=== PATIENT | male | born 1975 | race Caucasian/White ===

== ENCOUNTER 2024-04-15 17:02 | Emergency (ER) | payer BC, SELFPAY ==
--- NOTE | ~2024-04-15 | XR_ITS ---
CHEST RADIOGRAPH CLINICAL HISTORY: cough/sob x4 days . COMPARISON: None available TECHNIQUE: Single portable view of the chest. FINDINGS The cardiomediastinal silhouette is unremarkable. The lungs are clear. Visualized osseous structures and soft tissues are unremarkable. IMPRESSION: No focal infiltrate or effusion. Reviewed, dictated and finalized at location A. O INSTRUCTOR
[2024-04-15 17:02] VITALS: O2SAT 98
[2024-04-15 17:08] VITALS: BP 147/82; PULSE 70; RESP 18; TEMP 36.6; O2SAT 98
--- NOTE | 2024-04-15 17:25 | ECG_ITS ---
Test Date: 2024-04-15 17:41:09 Measurements Intervals [place] Rate: 59 P: 0 OK: 136 QRS: 31 QRSD: 118 T: 29 QT: 412 QTc: 410 Interpretive Statements SINUS BRADYCARDIA INCOMPLETE RIGHT BUNDLE BRANCH BLOCK EARLY PRECORDIAL R/S TRANSITION MINIMAL Q WAVES- HIGH LATERAL LEADS BORDERLINE ECG No previous ECG available for comparison Electronically Signed On 04-15-2024 19:01:18 RECYCLING COLLECTIONS DRIVER by Damian Barnes D.O.
--- NOTE | 2024-04-15 17:29 | ED_ITS ---
HPI - General Adult General Chief complaint: Upper Respiratory Infection Stated complaint: sob Time Seen by Provider: 04/15/24 17:25 Source: patient Mode of arrival: ambulatory Limitations: no limitations History of Present Illness HPI narrative: 48 years old white male came to the ED by private car complaining of shortness of breath while splinting 1 week ago since that time patient feel like unable to take deep breath. He denies any chest pain., currently feeling weak, tired, muscle aches and weak, intermittent cold chills, feel need to cough, currently feeling like not able to get enough air, feeling off. The above symptoms started 1 week ago. His fiancee tested positive for COVID 1 week prior to the beginning of his symptoms. History of asthma, anxiety, Hypertension, Graves disease, patient vapes. on hydroxyzine for anxiety and panic attack patient feeling anxious about his feeling and would like to get checkup for every Related Data Home Medications Medication Instructions Recorded Confirmed Unable to Obtain Home Medications 04/15/24 04/15/24 Allergies Allergy/AdvReac Type Severity Reaction Status Date / Time doxycycline Allergy Anaphylaxis Verified 04/15/24 17:20 Penicillins Allergy Anaphylaxis Verified 04/15/24 17:20 prednisone Allergy Anaphylaxis Verified 04/15/24 17:20 Review of Systems Review of Systems: All systems reviewed & are unremarkable except as noted in HPI and below Exam Narrative: General appearance: Well-developed, well-nourished Skin: Normal color Head: Normocephalic, nontraumatic Eyes: Clear conjunctiva ENT: Oropharynx normal, ears normal, nose normal Neck: Supple, nontender Chest and respiratory: Airway patent, no respiratory distress, no accessory muscle use, no wheezing, no rhonchi Heart: Regular rate/rhythm Abdomen: Soft, nontender, no organomegaly, quiet bowel sounds Vascular: Normal peripheral pulses, normal capillary refill. 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 is normal as tested, no gross motor deficit Course Vital Signs Vital signs: Vital Signs Temperature 36.6 C 04/15/24 17:08 Pulse Rate 70 04/15/24 17:08 Respiratory Rate 18 04/15/24 17:08 Blood Pressure 147/82 H 04/15/24 17:08 Pulse Oximetry 98 04/15/24 17:08 Oxygen Delivery Room Air 04/15/24 17:08 Temperature 36.6 C 04/15/24 17:08 Pulse Rate 70 04/15/24 17:08 Respiratory Rate 18 04/15/24 17:08 Blood Pressure 147/82 H 04/15/24 17:08 Pulse Oximetry 98 04/15/24 17:08 Oxygen Delivery Room Air 04/15/24 17:08 Medical Decision Making MDM Narrative Medical decision making narrative: patient came to the ED with 1 week of feeling weak, tired, anxious, shortness of breath on exertion, coughing. Vital signs are stable Physical examination insignificant Differential diagnosis include viral infection, asthma exacerbation, pulmonary embolism, pneumonia, coronary artery disease Blood workup today includes CBC, CMP and troponin and D-dimer showed WBC of 14.4 otherwise insignificant abnormality ABG on room air showed pH of 7.46, oxygen saturation 96.9 on room air Chest x-ray showed no acute abnormalities Vital Signs Vital Signs: Vital Signs Temperature 36.6 C 04/15/24 17:08 Pulse Rate 70 04/15/24 17:08 Respiratory Rate 18 04/15/24 17:08 Blood Pressure 147/82 H 04/15/24 17:08 Pulse Oximetry 98 04/15/24 17:08 Oxygen Delivery Room Air 04/15/24 17:08 Temperature 36.6 C 04/15/24 17:08 Pulse Rate 70 04/15/24 17:08 Respiratory Rate 18 04/15/24 17:08 Blood Pressure 147/82 H 04/15/24 17:08 Pulse Oximetry 98 04/15/24 17:08 Oxygen Delivery Room Air 04/15/24 17:08 Lab Data 04/15/24 17:44 04/15/24 17:44 Labs: Lab Results 04/15/24 Range/Units 17:44 WBC 14.4 H (4.8-10.8) K/mm3 RBC 5.23 (4.70-6.10) M/mm3 Hgb 14.8 (14.0-18.0) g/dL Hct 44.6 (40.0-54.0) % MCV 85.3 (78.0-102.0) fL MCH 28.3 (27.0-31.0) pg MCHC 33.2 (32-36) g/dL RDW 13.1 (11.6-14.4) % Plt Count 202 (150-420) K/mm3 MPV 9.3 (8.7-11.0) fl Immature Gran % (Auto) 0.4 H (0.0-0.0) % Neut % (Auto) 70.2 H (50.0-70.0) % Lymph % (Auto) 18.9 (18.0-42.0) % [place] % (Auto) 6.1 (2.0-11.0) % Eos % (Auto) 3.3 (1.0-6.0) % Baso % (Auto) 1.1 H (0.0-1.0) % Lymph # (Auto) 2.72 (1.10-4.50) K/mm3 [place] # (Auto) 0.88 (0.10-0.90) K/mm3 Eos # (Auto) 0.47 (0.02-0.50) K/mm3 Baso # (Auto) 0.16 H (0.00-0.10) K/mm3 Abs Immat Gran (auto) 0.06 H (0.00-0.00) K/mm3 Absolute Neuts (auto) 10.13 H (1.70-7.20) K/mm3 Absolute Nucleated RBC 0.00 (0.00-0.00) K/mm3 Nucleated RBC % 0.0 (0-0.0) % PT 10.9 (9.50-12.1) Seconds INR 1.0 APTT 27.6 (23.9-30.70) Sec D-Dimer 0.24 (0.19-0.50) mg/L Sodium 141 (136-145) mmol/L Potassium 3.8 (3.5-5.1) mmol/L Chloride 104 (98-108) mmol/L Carbon Dioxide 28 (21-32) mmol/L Anion Gap 9 (4-12) mmol/L BUN 18 (7-18) mg/dL Creatinine 1.06 (0.70-1.30) mg/dL Estim Creat Clear Calc 108 ml/min Estimated GFR > 60 (59 - ) Glucose 88 (70-99) mg/dL Calculated Osmolality 292 (285-295) mOsm/kg Calcium 8.9 (8.5-10.1) mg/dL Total Bilirubin 0.4 (0.00-1.00) mg/dL AST < 10 L (15-37) U/L ALT 31 (16-63) U/L Alkaline Phosphatase 79 (46-116) U/L Troponin I 6.8 (0.00-60.4) ng/L NT-Pro-B Natriuret Pep 48 (0-125) pg/mL Total Protein 6.8 (6.4-8.2) g/dL Albumin 3.7 (3.4-5.0) g/dL Influenza A (RT-PCR) Negative (Negative) Influenza B (RT-PCR) Negative (Negative) RSV (RT-PCR) Negative (Negative) SARS-CoV-2 RNA (RT-PCR) Negative (Negative) ABG Data ABG results: 04/15/24 17:44 Puncture Site Right radial ABG pH 7.46 H ABG pCO2 33.0 L ABG pO2 91.8 H ABG PO2/FiO2 Ratio Not Reportable ABG HCO3 22.8 L ABG O2 Saturation 96.9 ABG O2 Content 19.8 ABG Base Excess -0.3 L A-a Gradient Not Reportable Oxyhemoglobin 96.1 O2 Delivery Device Room air O2 Liters/Min Not Reportable Imaging Data Radiologist's impression: Impressions Chest X-Ray 04/15/24 17:56 IMPRESSION: No focal infiltrate or effusion. ECG Data EKG #1: Attestation: I personally reviewed and interpreted this ECG as follows: ECG completion date: 04/15/24 ECG completion time: 18:43 Interpretation: sinus bradycardia at 59 beats per minute, right ventricular conduction delay, lateral myocardial infarction, borderline EKG Critical Care Time Critical Care Time Critical Care Time: No Discharge Plan Discharge Clinical Impression: Anxiety-like symptoms, Dyspnea Patient Disposition: Home, Self-Care Condition: Stable Instructions: Dyspnea (ED), Anxiety (ED) Additional Instructions: Return if symptoms are worsening , call your family physician for appointment, take Tylenol as as needed for aches and pain, continue home medications. Prescriptions: No Action Unable to Obtain Home Medications Follow-up/Referrals: UNKNOWN,DOCTOR [Non-Staff] -
[2024-04-15 17:45] VITALS: BP 145/80; PULSE 62; RESP 18; O2SAT 98
[2024-04-15 17:46] LABS: Base Excess ABG -0.3 mmol/L (0-2); HCO3 ABG 22.8 mmol/L (23-29); Oxygen Content ABG 19.8 %vol (16.0-22.0); Oxygen Saturation ABG 96.9 % (95-97); Oxyhemoglobin 96.1 % (94-100); PO2 ABG 91.8 mmHg (80-90); pH ABG 7.46 (7.35-7.45)
[2024-04-15 17:48] LABS: Basophils Absolute Auto 0.16 K/mm3 (0.00-0.10); Basophils Percent Auto 1.1 % (0.0-1.0); Eosinophils Absolute Auto 0.47 K/mm3 (0.02-0.50); Eosinophils Percent Auto 3.3 % (1.0-6.0); Hematocrit 44.6 % (40.0-54.0); Hemoglobin 14.8 g/dL (14.0-18.0); Immature Granulocyte Absolute 0.06 K/mm3 (0.00-0.00); Immature Granulocyte Percent A 0.4 % (0.0-0.0); Lymphocytes Absolute Auto 2.72 K/mm3 (1.10-4.50); Lymphocytes Percent Auto 18.9 % (18.0-42.0); Mean Corpuscular HGB Conc 33.2 g/dL (32-36); Mean Corpuscular Hemoglobin 28.3 pg (27.0-31.0); Mean Corpuscular Volume 85.3 fL (78.0-102.0); Mean Platelet Volume 9.3 fl (8.7-11.0); Monocytes Absolute Auto 0.88 K/mm3 (0.10-0.90); Monocytes Percent Auto 6.1 % (2.0-11.0); Neutrophils Absolute Auto 10.13 K/mm3 (1.70-7.20); Neutrophils Percent Auto 70.2 % (50.0-70.0); Platelet Count Result 202 K/mm3 (150-420); Red Blood Count 5.23 M/mm3 (4.70-6.10); Red Cell Distribution Width 13.1 % (11.6-14.4); White Blood Count 14.4 K/mm3 (4.8-10.8)
[2024-04-15 18:01] LABS: D Dimer 0.24 mg/L (0.19-0.50); Partial Thromboplastin Time 27.6 Sec (23.9-30.70); Prothrombin Time 10.9 Seconds (9.50-12.1)
[2024-04-15 18:05] LABS: Site Drawn RIGHT RADIAL
[2024-04-15 18:06] LABS: Device ROOM AIR; Modified Allen's Test Pass
[2024-04-15 18:10] LABS: Alanine Aminotransferase 31 U/L (16-63); Albumin Level 3.7 g/dL (3.4-5.0); Alkaline Phosphatase 79 U/L (46-116); Anion Gap 9 mmol/L (4-12); Aspartate Amino Transferase < 10 U/L (15-37); Bilirubin,Total 0.4 mg/dL (0.00-1.00); Blood Urea Nitrogen 18 mg/dL (7-18); Calcium 8.9 mg/dL (8.5-10.1); Carbon Dioxide 28 mmol/L (21-32); Chloride 104 mmol/L (98-108); Estimated CRCL calculation 108 ml/min; Estimated Glomerular Filt Rate > 60; Glucose 88 mg/dL (70-99); NT Pro B Type Natriuretic Pept 48 pg/mL (0-125); Osmolality Calculated 292 mOsm/kg (285-295); Potassium 3.8 mmol/L (3.5-5.1); Sodium 141 mmol/L (136-145); Total Protein 6.8 g/dL (6.4-8.2); Troponin I 6.8 ng/L (0.00-60.4)
[2024-04-15 18:25] LABS: Influenza A QL RT-PCR Negative (Negative); Influenza B QL RT-PCR Negative (Negative); RSV RNA, RT-PCR Negative (Negative); SARS-CoV-2 RNA PCR Negative (Negative)
[2024-04-15 18:30] VITALS: BP 149/86; PULSE 65; RESP 16; O2SAT 97
[2024-04-15 19:01] VITALS: BP 149/86; PULSE 65; RESP 16; TEMP 36.6; O2SAT 97
== END 2024-04-15 19:01 | disposition home or self-care (01) ==
PROVIDERS: Emergency Provider Emergency Medicine
DX: R06.00 Dyspnea, unspecified (principal); R53.1 Weakness; I10 Essential (primary) hypertension; F17.290 Nicotine dependence, other tobacco product, uncomplicated; Z20.822 Contact with and (suspected) exposure to COVID-19
CPT/HCPCS: 36415; 36600; 71045; 80053; 82805; 83880; 84484; 85018; 85025; 85380; 85610; 85730; 87637; 93005; 99284

== ENCOUNTER 2024-06-06 16:50 | Emergency (ER) | payer BC, SELFPAY ==
[2024-06-06 16:50] VITALS: BP 125/83; PULSE 81; RESP 20; TEMP 36.3; O2SAT 98
--- NOTE | 2024-06-06 16:56 | ED_ITS ---
HPI - URI/Sore Throat General Chief Complaint: Upper Respiratory Infection Stated Complaint: sinus issues Time Seen by Provider: 06/06/24 16:56 Source: patient and family Mode of arrival: ambulatory Limitations: no limitations History of Present Illness HPI Narrative: 48 years old with came to the emergency room with nasal congestion, postnasal discharge of greenish sputum, and pain at the right face started over 7 days ago. Associated with feeling dizzy when he bends forward. patient denies any fever or chills or nausea or vomiting, history of recurrent sinus infection. Patient is allergic to penicillin doxycycline and prednisone History of hypertension Related Data Allergies Allergy/AdvReac Type Severity Reaction Status Date / Time doxycycline Allergy Anaphylaxis Verified 06/06/24 17:00 Penicillins Allergy Anaphylaxis Verified 06/06/24 17:00 prednisone Allergy Anaphylaxis Verified 06/06/24 17:00 Review of Systems Review of Systems: All systems reviewed & are unremarkable except as noted in HPI and below Exam Narrative: General appearance: Well-developed, well-nourished Skin: Normal color Head: Normocephalic, nontraumatic Eyes: Clear conjunctiva ENT: Oropharynx normal, nasal congestion, moderate tenderness right maxillary sinus Neck: Supple, nontender Chest and respiratory: Airway patent, no respiratory distress, no accessory muscle use Heart: Regular rate/rhythm Neurologic: Alert and oriented ?3, 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, no gross motor deficit MDM - URI/Sore Throat MDM Narrative Medical decision making narrative: differential diagnosis includes sinusitis, viral, secondary bacterial infection Discharged on Biaxin, and Atrovent nasal spray Differential Diagnosis Differential diagnosis: Likely other ( as above) Critical Care Time Critical Care Time Critical Care Time: No Discharge Plan Discharge Clinical Impression: Sinusitis Patient Disposition: Home, Self-Care Condition: Stable Instructions: Antibiotic Form, Sinusitis (ED) Additional Instructions: Return if symptoms are worsening , call your family physician for appointment, take Tylenol as as needed for aches and pain, continue home medications. Patient Language: Nigerien Prescriptions: New clarithromycin 500 mg tablet 500 mg PO Q12H 10 Days Qty: 20 0RF ipratropium bromide 42 mcg (0.06 %) spray,non-aerosol 2 spray intranasal QID 4 Days Qty: 15 0RF Rx Instructions: administer into each nostril Follow-up/Referrals: UNKNOWN,DOCTOR [Primary Care Provider] -
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
--- OUTSIDE RECORDS SUMMARY | 2024-06-13 03:44 | XMS_ITS | Encounter Summary ---
Author Organization [facility] Address [facility]. [place], [place] [id number] [place] [address] Care Team Providers Care Hotel Reservationist Name Role Phone Desi Dang MD Primary Care Provider [phone] Reason for Referral * Imaging (Routine) - Closed Specialty Diagnoses / Procedures Referred By Contac t Referred To Contact Diagnoses Lumbar radiculopathy Procedures IR LUMBAR EPIDURAL INJECTION Wiliam Morel MD [address] [place] [address] Phone: tel: fax: [address] [address] Phone: tel: fax: Referral ID Status Reason Start Date Expiration Date Visits Re quested Visits Authorized [id number] Closed 03/21/2021 04/25/2021 1 1 Reason for Visit * Imaging (Routine) - Closed Specialty Diagnoses / Procedures Referred By Contac t Referred To Contact Diagnoses Lumbar radiculopathy Procedures IR LUMBAR EPIDURAL INJECTION Wiliam Morel MD [address] [place] [address] Phone: tel: fax: [facility] [address] [place] [address] Phone: tel: fax: Referral ID Status Reason Start Date Expiration Date Visits Re quested Visits Authorized [id number] Closed 03/21/2021 04/25/2021 1 1 Encounter Details Date Type Department Care Team (Latest Contact Info) Description 03/26/2021 11:58 AM CDT - 03/26/2021 11:59 PM CDT Hospital Encounter [facility] Interventional Radiology [address] [place] [address] Wiliam Morel MD [address] [place] [address] Discharge Disposition: Home or Self Care (Routine Discharge) Social History Tobacco Use Types Packs/Day Years Used Date Smoking Tobacco: Smoker, Current Status Unknown Smokeless Tobacco: Current Alcohol Use Standard Drinks/Week Comments Not Currently 0 (1 standard drink = 0.6 oz pur e alcohol) Sex and Gender Information Value Date Recorded Sex Assigned at Not on file 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 No / Unsure 03/26/2021 11:56 AM CDT documented as of this encounter Last Filed Vital Signs Vital Sign Reading Time Taken Comments Blood Pressure 114/88 03/26/2021 2:00 PM CDT Pulse 68 03/26/2021 2:00 PM CDT Temperature - - Respiratory Rate 16 03/26/2021 2:00 PM CDT Oxygen Saturation 99% 03/26/2021 2:00 PM CDT Inhaled Oxygen Concentration - - Weight 163.3 kg (360 lb) 03/26/2021 12:49 PM CDT Height 180.3 cm (5' 11 ) 03/26/2021 12:49 PM CDT Body Mass Index 50.21 03/26/2021 12:49 PM CDT documented in this encounter Discharge Instructions * Discharge Instructions* Luz Elena Ojeda RN - 03/26/2021 12:51 PM CDT EPIDURAL STEROID INJECTION DISCHARGE INSTRUCTIONS 1. Following injection, engage only in minimal activity for the remainder of the day. You may resume normal activities the following day. 2. Do not drive a motor vehicle or operate machinery for at least 12 hours after the procedure. 3. You may resume your normal diet. 4. There may be tenderness or pain at the site of injection which will usually resolve in 1-2 days. 5. Complications are rare, but please seek care immediately should any of the fo llow ing occur: significant headache within the first 48 hours after the procedure, continued tenderness with redness and swelling at the site of injection, alteration in sensation on your legs, such as numbness, tingling, weakness, alteration in control of your bladder and/or bowel function. Also seek care for an elevated temperature of 100.4 degrees F (38 degrees C} or greater. 6. Keep any appointments with your physician for follow care. 7. If you have any questions or concerns, please contact the terventional Radiology Department [phone],ext. [phone]. documented in this encounter Procedure Notes * Wiliam Morel MD - 03/26/2021 1:40 PM CDT [facility] PROCEDURE NOTE: PROVIDER: Wiliam Morel MD LOCATION: [facility] PROCEDURE PERFORMED: 1. Lumbar epidural steroid injection under fluoroscopic guidance PRE-PROCEDURE DIAGNOSIS: 1. M54.16 Radiculopathy, lumbar region 2. M49.06 Spinal stenosis of lumbar region POST-PROCEDURE DIAGNOSIS: Same as above. INDICATION FOR PROCEDURE: Based on the patient??s clinical history, physical exam, and all available diagnostic studies, interventional pain therapy is appropriate at this time. Patient has tried conservative therapies but moderate to severe pain and functional impairment persist. Therefore, interventional injection therapyis medically necessary for the purpose of controlling pain and improving function. The patient underwent lumbar epidural steroid injections in the past with significant improvement in pain and function. INFORMED CONSENT: The patient was greeted in the pre-procedural area and identified by name, medical record number, and date of . The indications for, risks, benefits, and alternatives to procedure were discussedin detail, and all questions were answered to the patient??s satisfaction. Informed consent was obtained, signed, witnessed, and saved in the medical record. SEDATION: None ANESTHETIC: Local POSITION: Prone PROCEDURE IN DETAIL: The patient was brought into the procedure room and positioned on the fluoroscopy table. All pressure points were checked and comfortably padded with the patient awake. A formal time-out procedure was performed by Dr. Morel per protocol; name, date of , site of procedure and procedure title were verified before beginning the procedure. The operative area was prepped and draped in the usual sterile fashion. Using fluoroscopic guidance, the L5-S1 interspace was identified. The skin and subcutaneous tissues overlying the trajectory ofneedle insertion were anesthetized with 1% lidocaine using a 25-gauge x 1-1/2 inch needle. Using a l eft paramedian approach, a 20g x 5? Touhy needle was advanced until bony contact was made with the inferior lamina. The needle was then walked into the midline toward the interlaminar space at theL5-S1 level. The epidural space was found using intermittent fluoroscopy and the loss of resistanceto saline technique. After negative aspiration, Omnipaque 300mg/ml was injected and showed spread along the epidural space without vascular uptake or intrathecal spread. After negative aspiration for blood and CSF, a 5mLsolution of 2mL 40mg/ml Depo Medrol with 3mL sterile 0.9% NaCl was injected. The needle was withdrawn. Pressure was held over the needle insertion site and hemostasis was confirmed. POST-PROCEDURE: No immediate post-procedure complications were noted. The patient was monitored for approximately 20 minutes in the post procedure recovery area and discharged home in stable hemodynamic and neurological condition. The patient was given verbal and written post-operative instructions. The patient will follow up with Dr. Morel in the Pain Management Center in approximately 2-8 weeks, or sooner if clinically indicated. In case of emergency, the patient understands that they may call with questions or seek evaluation in the Emergency Room. Fluoroscopy Time: 32 seconds Images Taken: 5 documented in this encounter Plan of Treatment Not on file documented as of this encounter Procedures Procedure Name Priority Date/Time Associated Diagnosis Comments IR LUMBAR EPIDURAL INJECTION Routine 03/26/2021 2:09 PM CDT Lumbar radiculopathy documented in this encounter Results * IR LUMBAR EPIDURAL INJECTION (03/26/2021 2:09 PM CDT) Narrative Radiology, Technologist - 03/26/2021 2:10 PM CDT This report does not contain a radiologist's interpretation. Please review associated procedure and/or operative report. Wiliam Morel MD INTERVENTIONAL RADIOLOGY F inal Result documented in this encounter Visit Diagnoses Diagnosis Lumbar radiculopathy Thoracic or lumbosacral neuritis or radiculitis, unspecified documented in this encounter Administered Medications Inactive Administered Medications - up to 3 most recent administrations Medication Order MAR Action Action Date Dose Rate Site iopamidol (ISOVUE-M 200) 41 % injection 3 mL 3 mL, Other, IMG once as needed, Contrast, 1 dose, Starting on Thu03/26/21 at 1409, Until Thu03/26/21 at 1409 Given 03/26/2021 2:09 PM CDT 3 mLs methylPREDNISolone acetate (DEPO-Medrol) injection 80 mg 80 mg, Other, Once, 1 dose, On Thu03/26/21 at 1430, Shake Well Given 03/26/2021 2:10 PM CDT 80 mg documented in this encounter Care Teams Hotel Reservationist Relationship Specialty Start Date End Date Desi Dang MD [address] [place] [address] PCP - General FAMILY PRACTICE 06/15/20 documented as of this encounter
--- OUTSIDE RECORDS SUMMARY | 2024-06-13 03:44 | XMS_ITS | Clinical Summary ---
Author Organization [facility] Address [address] [place] [address]. [place], [place] [id number] [place] [address] Care Team Providers Care Supervisor Propellant Charge Loading Name Role Phone Desi Dang MD Primary Care Provider [phone] Allergies Active Allergy Reactions Criticality Noted Date Comments Penicillins Rash Low 06/15/2020 Prednisone Diarrhea 06/15/2020 Medications No known medications Social History Tobacco Use Types Packs/Day Years Used Date Smoking Tobacco: Smoker, Current Status Unknown Smokeless Tobacco: Current Alcohol Use Standard Drinks/Week Comments Not Currently 0 (1 standard drink = 0.6 oz pur e alcohol) Sex and Gender Information Value Date Recorded Sex Assigned at Not on file 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 Gender Identity Not on file Sexual Orientation Not on file Last Filed Vital Signs Vital Sign Reading [...] Mass Index 50.21 03/26/2021 12:49 PM CDT Plan of Treatment Health Maintenance Due Date Last Done Comments Colorectal Cancer Screening Colonoscopy (10 Years) 1976 Annual Physical 12/20/1979 Pneumococcal Vaccine: Pediat rics (0 to 5 Years) and At-Risk Patients (6 to 64 Years) (1 of 2 - PCV) 1982 Hepatitis C 1994 DTaP, Tdap and Td Vaccines ( 1 - Tdap) 12/20/1995 Hepatitis B Vaccines (1 of 3 - 19+ 3-dose series) 12/20/1995 COVID-19 Vaccine (1 - 2023-2 5 season) 2024 Influenza Adult (#1) 2024 Meningococcal Vaccine Aged Out No [place] eligible based on patient's age to complete this topic RSV Immunizations Under 20 Months Aged Out No longer eligible based on patient's age to complete this topic Insurance [place] Care Teams Supervisor Propellant Charge Loading Relationship Specialty Start Date End Date Desi Dang MD [address] [place] [address] PCP - General FAMILY PRACTICE 06/15/20
--- OUTSIDE RECORDS SUMMARY | 2024-06-13 03:44 | XMS_ITS | Encounter Summary ---
Author Organization [facility] Address [facility]6 [facility]. [place], [place] [address] [place] [address] Care Team Providers Care Electrical Electronics Engineer Name Role Phone Desi Dang MD Primary Care Provider [phone] Reason for Referral * Imaging (Routine) - Closed Specialty Diagnoses / Procedures Referred By Contac t Referred To Contact Diagnoses Other specific arthropathies, not elsewhere classified, other specified site Procedures IR INJ FACET LUMB SACRAL INIT LT IR LUMBAR EPIDURAL INJECTION Wiliam Morel MD [address] [place] [address] Phone: tel: fax: [facility] [address] [place] [address] Phone: tel: fax: Referral ID Status Reason Start Date Expiration Date Visits Re quested Visits Authorized [id number] Closed 06/25/2020 12/22/2020 1 1 E WRITER Reason for Visit * Imaging (Routine) - Closed Specialty Diagnoses / Procedures Referred By Contac t Referred To Contact Diagnoses Other specific arthropathies, not elsewhere classified, other specified site Procedures IR INJ FACET LUMB SACRAL INIT LT IR LUMBAR EPIDURAL INJECTION Wiliam Morel MD [address] [place] [address] Phone: tel: fax: [facility] [address] [place] [address] Phone: tel: fax: Referral ID Status Reason Start Date Expiration Date Visits Re quested Visits Authorized [id number] Closed 06/25/2020 12/22/2020 1 1 Encounter Details Date Type Department Care Team (Latest Contact Info) Description 08/10/2020 8:32 AM MOVIE WRITER - 08/10/2020 11:59 PM MOVIE WRITER Hospital Encounter [facility] Interventional Radiology [address] [place] [address] Wiliam Morel MD [address] [place] [address] Discharge Disposition: Home or Self Care (Routine Discharge) Social History Tobacco Use Types Packs/Day Years Used Date Smoking Tobacco: Smoker, Current Status Unknown Smokeless Tobacco: Current Sex and Gender Information Value Date Recorded Sex Assigned at Not on file Legal Sex Male 10:06 PM MOVIE WRITER Gender Identity Not on file Sexual Orientation Not on file COVID-19 Exposure Response Date Recorded In the last month, have you been in contact with someone who was confirmed or suspected to have Coronavirus / COVID-19? No / Unsure 08/10/2020 8:30 AM MOVIE WRITER documented as of this encounter Last Filed Vital Signs Vital Sign Reading Time Taken Comments Blood Pressure 127/73 08/10/2020 9:57 AM MOVIE WRITER Pulse 82 08/10/2020 9:57 AM MOVIE WRITER Temperature - - Respiratory Rate 16 08/10/2020 9:57 AM MOVIE WRITER Oxygen Saturation 96% 08/10/2020 9:57 AM MOVIE WRITER Inhaled Oxygen Concentration - - Weight 158.8 kg (350 lb) 08/10/2020 9:15 AM MOVIE WRITER Height 180.3 cm (5' 11 ) 08/10/2020 9:15 AM MOVIE WRITER Body Mass Index 48.82 08/10/2020 9:15 AM MOVIE WRITER documented in this encounter Discharge Instructions * Discharge Instructions* Rosanna Sanford RN - 08/10/2020 9:22 AM MOVIE WRITER PT GIVEN VERBAL AND WRITTEN INSTRUCTIONS. PT VERBALIZED UNDERSTANDING. E WRITER documented in this encounter Procedure Notes * Wiliam Morel MD - 08/10/2020 9:50 AM CST [facility] PROCEDURE NOTE: PROVIDER: Wiliam Morel MD LOCATION: [facility] PROCEDURE PERFORMED: 1. Facet nerve blockade of the left L4, L5, S1 vertebral levels under fluoroscopic guidance #1 PRE-PROCEDURE DIAGNOSIS: 1. 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 M54.5 Low back pain POST-PROCEDURE DIAGNOSIS: Same as above. INDICATION FOR PROCEDURE: Based on the patient???s clinical history, physical exam, and all available diagnostic studies, medial branch nerve blocks are appropriate at this time. Patient has tried conservative therapies but moderate to severe pain and functional impairment persist. Therefore, interventional injection therapy is medically necessary for the purpose of controlling pain and improving function. The patient has not had diagnostic medial branch blocks in the past. INFORMED CONSENT: The patient was greeted in the pre-procedural area and identified by name, medical record number, and date of . The indications for, risks, benefits, and alternatives to procedure were discussedin detail, and all questions were answered to the patient???s satisfaction. Informed consent was obtained, signed, witnessed, [...] usual sterile fashion. Using fluoroscopic guidance, the lumbosacral spine was scanned and the C-arm was obliqued to visualize the pedicles on both sides. The skin and subcutaneous tissues overlying the trajectory of needle insertion were anesthetizedwith 1% lidocaine using a 25-gauge x 1-1/2 inch needle. A 22-gauge x 5 inch spinal needle was advanced under serial fluoroscopic guidance along the anesthetized track. The corresponding lumbar medialbranch nerves were targeted at the upper end of the pedicle at the junction of the superior articular process and transverse process at the L4 and L5 vertebral body levels on the left. The L5 dorsal ramus nerves were targeted on the left in the groove at the junction of the S1 articular process andsacral ala. The positioning of the needle was confirmed on posteroanterior and lateral views. Afternegative aspiration for blood and CSF, a small volume of Omnipaque 300mg/ml was injected and confirmed spread along the medial branch areas at the indicated level without vascular uptake. After negative aspiration, 0.5mL of 0.75% bupivacaine was injected at each level. The needle was re-styletted and removed. Pressure was held over the needle insertion site and hemostasis was confirmed. POST-PROCEDURE: No immediate post-procedure complications were noted. The patient was monitored for approximately 20 minutes in the post procedure recovery area and discharged home in stable hemodynamic and neurological condition. The patient was given verbal and written post-operative instructions. The patient will follow up with Dr. Morel for a repeat of the above lumbar MBB procedure if there is adequate pain relief from today's procedure. If there is inadequate relief from today's procedure then they will follow up with Dr. Morel in the Pain Management Center in approximately 2-8 weeks, or sooner if clinically indicated. In case of emergency, the patient understands that they may call with questions or seek evaluation in the Emergency Room. Fluoroscopy Time: 48 seconds Images Taken: 3 E WRITER documented in this encounter Plan of Treatment Not on file documented as of this encounter Procedures Procedure Name Priority Date/Time Associated Diagnosis Comments IR INJ FACET LUMB SACRAL INIT LT Routine 08/10/2020 10:20 AM MOVIE WRITER Other specific arthropathies, not elsewhere classified, other specified site documented in this encounter Results * IR INJ FACET LUMB SACRAL INIT LT (08/10/2020 10:20 AM MOVIE WRITER) Narrative Radiology, Technologist - 08/10/2020 11:35 AM MOVIE WRITER This report does not contain a radiologist's interpretation. Please review associated procedure and/or operative report. us Wiliam Morel MD INTERVENTIONAL RADIOLOGY F inal Result documented in this encounter Visit Diagnoses Diagnosis Other specific arthropathies, not elsewhere classified, other specified site documented in this encounter Administered Medications Inactive Administered Medications - up to 3 most recent administrations Medication Order MAR Action Action Date Dose Rate Site bupivacaine (PF) (DORIEAINE) 0.75 % injection 5 mL 5 mL, Other, Once, 1 dose, On Thu08/10/20 at 1200 Given 08/10/2020 10:20 AM MOVIE WRITER 5 mLs iopamidol (ISOVUE-M 200) 41 % injection 8 mL 8 mL, Other, IMG once as needed, Contrast, 1 dose, Starting on Thu08/10/20 at 1133, Until Thu08/10/20 at 1020 Given 08/10/2020 10:20 AM MOVIE WRITER 8 mLs lidocaine (XYLOCAINE) 1 % injection SOLN 3 mL 3 mL, Intradermal, Once, 1 dose, On Thu08/10/20 at 1200 Given 08/10/2020 10:20 AM MOVIE WRITER 3 mLs Back documented in this encounter Care Teams Electrical Electronics Engineer Relationship Specialty Start Date End Date Desi Dang MD [address] [place] [address] PCP - General FAMILY PRACTICE 06/15/20 documented as of this encounter
--- OUTSIDE RECORDS SUMMARY | 2024-06-13 03:44 | XMS_ITS | Encounter Summary ---
Author Organization [facility] Address [facility], [facility]6 [facility] [place] [address] [place] [address] Care Team Providers Care Fruit Farmer Name Role Phone Desi Dang MD Primary Care Provider [phone] Reason for Visit * Imaging (Routine) - Closed Specialty Diagnoses / Procedures Referred By Kristyn vieira Referred To Contact Diagnoses Sacroiliitis, not elsewhere classified (CMS/HCC) Procedures IR INJ ANES/STER SI JOINT W GD LT IR INJ SI JOINT BURSA LT IR LUMBAR EPIDURAL INJECTION Wiliam Morel MD [address] [place] [address] Phone: tel: fax: [facility] [address] [place] [address] Phone: tel: fax: Referral ID Status Reason Start Date Expiration Date Visits Re quested Visits Authorized [id number] Closed 05/16/2020 11/12/2020 1 1 Encounter Details Date Type Department Care Team (Latest Contact Info) Description 06/15/2020 7:46 AM MANAGER MEMBERSHIP - 06/15/2020 11:59 PM [facility] Hospital Encounter [facility] Interventional Radiology [address] [place] [address] Wiliam Morel MD [address] [place] [address] Discharge Disposition: Home or Self Care (Routine Discharge) Social History Tobacco Use Types Packs/Day Years Used Date Smoking Tobacco: Smoker, Current Status Unknown Smokeless Tobacco: Current Sex and Gender Information Value Date Recorded Sex Assigned at Not on file Legal Sex Male 10:06 PM MANAGER MEMBERSHIP Gender Identity Not on file Sexual Orientation Not on file COVID-19 Exposure Response Date Recorded In the last month, have you been in contact with someone who was confirmed or suspected to have Coronavirus / COVID-19? No / Unsure 06/15/2020 7:45 AM MANAGER MEMBERSHIP documented as of this encounter Last Filed Vital Signs Vital Sign Reading Time Taken Comments Blood Pressure 113/63 06/15/2020 8:38 AM MANAGER MEMBERSHIP Pulse 70 06/15/2020 8:38 AM MANAGER MEMBERSHIP Temperature - - Respiratory Rate 18 06/15/2020 8:38 AM MANAGER MEMBERSHIP Oxygen Saturation 96% 06/15/2020 8:38 AM MANAGER MEMBERSHIP Inhaled Oxygen Concentration - - Weight 158.8 kg (350 lb) 06/15/2020 7:58 AM MANAGER MEMBERSHIP Height 180.3 cm (5' 11 ) 06/15/2020 7:58 AM MANAGER MEMBERSHIP Body Mass Index 48.82 06/15/2020 7:58 AM MANAGER MEMBERSHIP documented in this encounter Discharge Instructions * Discharge Instructions* Rosanna Sanford RN - 06/15/2020 8:04 AM MANAGER MEMBERSHIP Pt given verbal and written instructions. Pt verbalized understanding. GER MEMBERSHIP documented in this encounter Procedure Notes * Wiliam Morel MD - 06/15/2020 8:40 AM CST PA[facility] MANA[facility]EMENT [facility] PROCEDURE NOTE: PROVIDER: Wiliam Morel MD LOCATION: [facility] PROCEDURE PERFORMED: 1. Left sacroiliac joint block under fluoroscopic guidance PRE-PROCEDURE DIAGNOSIS: 1. M46.1 Sacroilitis, not elsewhere classified 2. M54.5 Low back pain POST-PROCEDURE DIAGNOSIS: Same as above. INDICATION FOR PROCEDURE: Based on the patient??s clinical history, physical exam, and all available diagnostic studies, interventional pain management therapy is appropriate at this time. Patient has tried conservative therapies but moderate to severe pain persists. Therefore, interventional injection therapy is medically necessary for the purpose of controlling pain and improving function. The patient has not had diagnostic sacroiliac joint blocks in the past. INFORMED CONSENT: The [...] the lumbosacral spine was scanned and the left sacroiliac joint was visualized with contralateral oblique tilt. The skin and subcutaneous tissues overlying the trajectory of needle insertion were anesthetized with 1% lidocaine using a 25-gauge x 1-1/2 inch needle. A 22-gauge x 5 inch spinal needlewas advanced under serial fluoroscopic guidance, targeting the inferior third of the joint, until it engaged the target. After negative aspiration, a small volume of Omnipaque 300mg/ml was injected and confirmed spread along the sacroiliac joint area. Lateral imaging was obtained to ensure appropriate depth. After negative aspiration, 2mL of a treatment solution containing 1mL of 40 mg/mL methylprednisolone and 1mL of 0.9% normal saline was injected. The needle was re-styletted and removed. Pressure [...] evaluation in the Emergency Room. Fluoroscopy Time: 24 seconds Images Taken: 3 GER MEMBERSHIP GER MEMBERSHIP documented in this encounter Plan of Treatment Not on file documented as of this encounter Procedures Procedure Name Priority Date/Time Associated Diagnosis Comments IR INJ ANES/STER SI JOINT W GD LT Routine 06/15/2020 8:34 AM MANAGER MEMBERSHIP Sacroiliitis, not elsewhere classified documented in this encounter Results * IR INJ ANES/STER SI JOINT W GD LT (06/15/2020 8:34 AM MANAGER MEMBERSHIP) Anatomical Region Laterality Modality NA Interventional R adiology, Interventional Radiology Narrative 06/15/2020 8:38 AM MANAGER MEMBERSHIP This report does not contain a radiologist's interpretation. Please review associated procedure and/or operative report. us Wiliam Morel MD INTERVENTIONAL RADIOLOGY E dited Result - Final documented in this encounter Visit Diagnoses Diagnosis Sacroiliitis, not elsewhere classified (CMS/HCC) Sacroiliitis, not elsewhere classified documented in this encounter Administered Medications Inactive Administered Medications - up to 3 most recent administrations Medication Order MAR Action Action Date Dose Rate Site iopamidol (ISOVUE-M 200) 41 % injection 2 mL 2 mL, Other, IMG once as needed, Contrast, 1 dose, Starting on Thu06/15/20 at 0835, Until Thu06/15/20 at 0835 Given 06/15/2020 8:35 AM MANAGER MEMBERSHIP 2 mLs methylPREDNISolone acetate (DEPO-Medrol) injection 40 mg 40 mg, Other, Once, 1 dose, On Thu06/15/20 at 0900, Shake Well Given 06/15/2020 8:35 AM MANAGER MEMBERSHIP 40 mg documented in this encounter Care Teams Fruit Farmer Relationship Specialty Start Date End Date Desi Dang MD [address] [place] [address] PCP - General FAMILY PRACTICE 06/15/20 documented as of this encounter
--- OUTSIDE RECORDS SUMMARY | 2024-06-13 03:44 | XMS_ITS | Encounter Summary ---
Author Organization [facility] Address [facility] [place] [address] [place] [address] Care Team Providers Care Licensed Club Manager Name Role Phone Unavailable Primary Care Provider Unavailabl e Encounter Details Date Type Department Care Team (Late st Contact Info) Description 03/06/2007 Emergency [facility] Emergency [address] [place] [address] Myron Leon MD [address] [place], [place] [address] Social History Tobacco Use Types Packs/Day Years Used Date Smoking Tobacco: Never Assessed Sex and Gender Information Value Date Recorded Sex Assigned at Not on file Legal Sex Male 10:06 PM MACHINERY ENGINEER Gender Identity Not on file Sexual Orientation Not on file documented as of this encounter Plan of Treatment Not on file documented as of this encounter Visit Diagnoses Not on filedocumented in this encounter
--- OUTSIDE RECORDS SUMMARY | 2024-06-13 03:44 | XMS_ITS | Encounter Summary ---
Author Organization [facility] Address [facility]6 [facility] [place] [address] [place] [address] Care Team Providers Care Cigarette Tipper Name Role Phone Unavailable Primary Care Provider Unavailabl e Encounter Details Date Type Department Care Team (Late st Contact Info) Description 10/16/2012 Abstract [facility] Medical Group Priority Care - SToi Lam [address] [place] [address] Lupe Gill MD [facility] [place] [address] Social History Tobacco Use Types Packs/Day Years Used Date Smoking Tobacco: Never Assessed Sex and Gender Information Value Date Recorded Sex Assigned at Not on file Legal Sex Male 10:06 PM CALL CENTER OPERATIONS MANAGER Gender Identity Not on file Sexual Orientation Not on file documented as of this encounter Last Filed Vital Signs Vital Sign Reading Time Taken Comments Blood Pressure 126/78 10/16/2012 9:36 AM CDT Pulse 60 10/16/2012 9:36 AM CDT Temperature - - Respiratory Rate - - Oxygen Saturation - - Inhaled Oxygen Concentration - - Weight 114.3 kg (252 lb) 10/16/2012 9:36 AM CDT Height 180.3 cm (5' 11 ) 10/16/2012 9:36 AM CDT Body Mass Index 35.15 10/16/2012 9:36 AM CDT documented in this encounter Progress Notes * Lupe Vivas MD - 10/16/2012 9:30 AM CDT Chief Complaint 1. Cold Symptoms Chief Complaint Free Text: Pt states he was at work yesterday and started feeling weird . States he was cold and clammy, week, spacie and had some difficulty breathing. Reason For Visit Acute Visit History of Present Illness HPI Free Text: doing better today than yesterday. pt not sure how much is thyroid. He wants to rule out cardiac cause. Denies chest pain. some numbness and tingling 4th and 5th fingers on left hand Cold Symptoms: Associated symptoms include post nasal drainage, sore throat, dry cough, shortness of breath and chills. Active Problems 1. Hyperthyroidism 242.90 Social History ?? Current Smoker 305.1 Current Meds 1. Methimazole 5 MG Oral Tablet; TAKE 15 MG Daily; Therapy: (Recorded:16Oct2012) to Recorded; For: Hyperthyroidism (242.90); Dispense: 0 Days ; #: Sufficient Tablet; Refill: 0; Record; Last Updated By: Jeri Zhou 2. Propranolol HCl 10 MG Oral Tablet; Therapy: (Recorded:16Oct2012) to Recorded; Dispense: 0 Days ; #: Sufficient TABS; Refill: 0; Record; Last Updated By: Jeri Zhou Allergies 1. Penicillins Vitals Vital Signs [Data Includes: Current Encounter] 16Oct2012 09:36AM Temperature 99 F, Oral Heart Rate 60, L Radial Pulse Quality Regular, L Radial Respiration 16 Respiration Quality Normal Systolic 126, LUE, Sitting Diastolic 78, LUE, Sitting O2 Saturation 98, RA BMI Calculated 35.28 BSA Calculated 2.32 Height 5 ft 11 in Weight 252 lb Physical Exam Constitutional: no acute distress, well appearing and well nourished. Eyes: PERRL. ENT: translucent with normal light reflex and canals patent without erythema and normal oropharynx without erythema, edema, exudate, or lesions. Pulmonary: no increased work of breathing or signs of respiratory distress and clear to auscultation. Cardiovascular: normal rate and rhythm, normal S1 and S2, without murmurs. Psychiatric: oriented to person, place, and time. Musculoskeletal/Neurological: Musculoskeletal: gait and station normal, normal range of motion and normal strength/tone. Assessment 1. Hyperthyroidism 242.90 2. Hypertension 401.9 3. Upper Respiratory Infection 465.9 Plan likely early viral syndrome that may be affecting his thyroid function, but no tachycardia or increased BP. Keep appt with endocrine in 2 days. ibuprofen prn and gargle with warm salt water prn ; push fluids Signatures Electronically signed by : Lupe Vivas M.D.; Oct 16 2012 11:36AM (Author) CENTER OPERATIONS MANAGER documented in this encounter Plan of Treatment Not on file documented as of this encounter Visit Diagnoses Not on filedocumented in this encounter
--- OUTSIDE RECORDS SUMMARY | 2024-06-13 03:44 | XMS_ITS | Encounter Summary ---
Author Organization [facility] Address [facility]6 [facility]. [place], [place] [address] [place] [address] Care Team Providers Care Bullard Operator Name Role Phone Desi Dang MD Primary Care Provider [phone] Encounter Details Date Type Department Care Team (Latest Contact Info) Description 08/10/2020 Travel Social History Tobacco Use Types Packs/Day Years Used Date Smoking Tobacco: Smoker, Current Status Unknown Smokeless Tobacco: Current Sex and Gender Information Value Date Recorded Sex Assigned at Not on file Legal Sex Male 10:06 PM OSTEOPATHIC RESIDENT Gender Identity Not on file Sexual Orientation Not on file COVID-19 Exposure Response Date Recorded In the last month, have you been in contact with someone who was confirmed or suspected to have Coronavirus / COVID-19? No / Unsure 08/10/2020 8:30 AM OSTEOPATHIC RESIDENT documented as of this encounter Plan of Treatment Not on file documented as of this encounter Visit Diagnoses Not on filedocumented in this encounter Care Teams Bullard Operator Relationship Specialty Start Date End Date Desi Dang MD [address] [place] [address] PCP - General FAMILY PRACTICE 06/15/20 documented as of this encounter
--- OUTSIDE RECORDS SUMMARY | 2024-06-13 03:44 | XMS_ITS | Encounter Summary ---
Author Organization [facility] Address [address] [place] [address]. [place], [place] [address] [place] [address] Care Team Providers Care Boiler Welder Name Role Phone Desi Dang MD Primary Care Provider [phone] Encounter Details Date Type Department Care Team (Latest Contact Info) Description 03/26/2021 Travel Social History Tobacco Use Types Packs/Day Years Used Date Smoking Tobacco: Smoker, Current Status Unknown Smokeless Tobacco: Current Alcohol Use Standard Drinks/Week Comments Not Currently 0 (1 standard drink = 0.6 oz pur e alcohol) Sex and Gender Information Value Date Recorded Sex Assigned at Not on file Legal Sex Male 10:06 PM 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 No / Unsure 03/26/2021 11:56 AM CDT documented as of this encounter Plan of Treatment Not on file documented as of this encounter Visit Diagnoses Not on filedocumented in this encounter Care Teams Boiler Welder Relationship Specialty Start Date End Date Desi Dang MD [address] [place] [address] PCP - General FAMILY PRACTICE 06/15/20 documented as of this encounter
--- OUTSIDE RECORDS SUMMARY | 2024-06-13 03:44 | XMS_ITS | Encounter Summary ---
Author Organization [facility] Address [facility]6 [facility]. [place], [place] [address] [place] [address] Care Team Providers Care General Utility Maintenance Repairer Name Role Phone Desi Dang MD Primary Care Provider [phone] Encounter Details Date Type Department Care Team (Latest Contact Info) Description 06/15/2020 Travel Social History Tobacco Use Types Packs/Day Years Used Date Smoking Tobacco: Smoker, Current Status Unknown Smokeless Tobacco: Current Sex and Gender Information Value Date Recorded Sex Assigned at Not on file Legal Sex Male 10:06 PM EVP BUSINESS DEVELOPMENT Gender Identity Not on file Sexual Orientation Not on file COVID-19 Exposure Response Date Recorded In the last month, have you been in contact with someone who was confirmed or suspected to have Coronavirus / COVID-19? No / Unsure 06/15/2020 7:45 AM EVP BUSINESS DEVELOPMENT documented as of this encounter Plan of Treatment Not on file documented as of this encounter Visit Diagnoses Not on filedocumented in this encounter Care Teams General Utility Maintenance Repairer Relationship Specialty Start Date End Date Desi Dang MD [address] [place] [address] PCP - General FAMILY PRACTICE 06/15/20 documented as of this encounter
--- OUTSIDE RECORDS SUMMARY | 2024-06-13 03:45 | XMS_ITS | Data Portability ---
Author Organization [facility], [address] Neurology (NM) Address [address] 4th [place] [address] Care Team Providers Care Mobile Equipment Servicer Name Role Phone VIGNESH SCHULER Primary Care Provider Assessment Encounter Date Assessment Date Assessment LastModified by Organization Details LastModified Time 03/24/2024 03/24/2024 1. Health maintenance: Discussed chronic disease management in detail, medication compliance, healthy diet/staying active, and advised follow-up in 1 year, sooner if needed. 2. Seasonal allergic rhinitis: We will start the patient on some Singulair 10 mg at bedtime. He will continue Zyrtec oral daily. He is to follow up in the office as needed and verbalized understanding. 3. Impacted cerumen, right ear: Obtained informed consent. We did flush out that right ear and able to visualize TM and it appears normal. The patient tolerated the procedure well with no complaints. 4. Hypertension: Blood pressure is stable today in office. The patient remains on losartan 100 mg oral daily. No medication changes at this time. Recommend continue to monitor blood pressure at home or various offices and stores. Request that they report changes in numbers or problems with medication. Discussed continued lifestyle modifications for weight and blood pressure. 5. Obstructive sleep apnea syndrome: The patient wears CPAP nightly. No acute complaints. Not currently following any specialists. 6. History of Graves? disease: The patient recently had thyroid labs done back in the spring that were stable. Not currently following anybody in Endocrinology. Defers getting any labs at this time. He will plan to get bloodwork done when he establishes with a new primary care in [place]. 7. Asthma: The patient has no acute asthma complaints today, just some increased allergy complaints. I am starting him on some Singulair. He is also on the Symbicort and albuterol inhaler as needed. He is to follow up in the office if he has any acute issues and verbalized understanding. 8. Anxiety: The patient has no acute complaints of anxiety. He is not currently on any medication for this. He is to follow up in the office as needed and verbalized understanding. 9. Erectile dysfunction: The patient is being treated with sildenafil for erectile dysfunction and tolerating this well. No acute complaints. We will refill medication as indicated. The patient is to follow up in office if he has any acute issues and verbalized understanding. I personally spent a total of 30 minutes on the patient on this date of service including both bece-hr-ppui and pvg-teft-rr-face time excluding any separately reportable services. lag [email or web address] Not available 03/24/2024 16:16:34 Plan of Treatment Reminders Order Date Submit Date Provider Last Modified By Organization Details Last Modified Time Details Appointments None recorded. Lab None recorded. Referral None recorded. Procedures None recorded. Surgeries None recorded. Imaging None recorded. Medication Orders sildenafil 50 mg tablet 2023 [facility] [address] [place], [address], 15:40:42 Symbicort 160 mcg-4.5 mcg/actuati on HFA aerosol inhaler 2023 [facility] [address] [place], [address], 4 15:40:42 albuterol sulfate HFA 90 mcg/actuati on aerosol inhaler 2023 [facility] [address] [place], [address], 15:40:43 losartan 100 mg tablet 2023 [facility] [address] [place], [address], 15:40:41 montelukast 10 mg tablet 2023 024 [facility], [address], [place], [address], 15:37:19 Patient TargetsNo targets recorded. Patient Instructions Encounter Date Encounter Id Patient Instructions Last Modified By Organization Details Last Modified Time 01/06/2024 [id number] I discussed with the patient that this looks like a simple superficial laceration of the scalp. He was treated with Dermabond. The wound was cleansed within 20 minutes of the injury. I do not feel antibiotics are necessary today. He should watch for signs of infection if he develops any he should return for reevaluation. He is up-to-date on his tetanus immunization. He is negative for any significant head injury. If he does develop problems with headache, lightheadedness, dizziness he should return for reevaluation. [email or web address] Not available 01/06/2024 12:25:12 Reason for Referral None Reported. Problems Name Problem SNOMED Code Status Onset Date Resolution Date Notes Provider Name and Address Organization Details Recorded Time Benign essential hypertensio n 2673660 Active 2023 Dior Yordy [facility] 4 15:33:34 Anxiety 13066348 Active 2023 Nathalie Sun [facility] 4 11:33:35 Asthma 936432009 Active 2023 Nathalie Sun [facility] 4 11:33:49 Graves' disease 074444104 Active 2023 Nathaliesacha Sun [facility] 4 11:34:10 Obstructive sleep apnea syndrome 90310240 Active 2023 Nathaliesacha Sun [facility] 4 11:34:31 Impacted cerumen in right ear 2016799497841 103 Active 2023 Terri Lynn, EXECUTIVE MANAGER, WOOD MODEL MAKER [address] [place] [address], [phone] , [facility] 4 15:32:55 Seasonal allergic rhinitis 936599108 Active 2023 Terri Lynn APRN, WOOD [employer]DEL MAKER [address] [place] [address], [phone], [facility] 4 15:34:46 Erectile dysfunction 942494147 Active 2023 Terri Lynn APRN, [employer] [address] [place] [address], [phone], [facility] 4 15:39:13 Chronic obstructive pulmonary disease 49378927 Active 2023 Bree Hernandez [facility] 4 23:36:24 Problem Notes None recorded. Procedures Surgical History Date Name Laterality Status Provider Name and Address Organization Details Recorded Time 4 Wound Care UC completed JODEE ZHANG APRN-WOOD MODEL MAKER [address] [place] [address], [phone], [facility] 01/06/2024 12:23:50 Removal of tonsils completed Not Available Health Note 03/17/2024 15:23:38 Imaging Results None recorded. Procedure Notes None recorded. Medical Equipment None Reported. Allergies Allergen ID Allergen Name Allergen Category Reaction Reaction Severity Criticality Documentation Date Start Date Code Code System Note Provider Name and Address Organization Details Recorded Time [id number] [id number] d6566 prednison e medicatio n dizziness Not available Not available 07/01/20232018 8640 RxNorm React ion: Dizzi ness; Comme nt: Annot ation s: NAT MATUTE, LEO SULTANA 2018 8:28A M Also cause d light heade dness ; ; Not Available Not Available Not Available [id number] 35c0f Medicinal product containin g penicilli n and acting as antibacte rial agent (product) medicatio n rash Not available Not available 06/29/20232007 97922 05 SNOMED React ion: Rash; Not Available Not Available Not Available [id number] b50 doxycycli ne Not available other Not available Not available 06/29/20232018 3640 RxNorm React ion: Unkno wn to Patie nt; Not Available Not Available Not Available Medications Name Sig Start Date Stop Date Status Note LastModified by Organization Details LastModified Time sildenafil 50 mg tablet TAKE 1 TABLET BY MOUTH ONCE DAILY ONE HOUR BEFORE NEEDED 2023 active Not Available Not Available Not Avai lable montelukast 10 mg tablet Take 1 tablet every day by oral route as directed for 90 days. 2023 active Not Available Not Available Not Avai lable albuterol sulfate HFA 90 mcg/actuati on aerosol inhaler Inhale 2 puffs every 4 hours by inhalatio n route as needed for 30 days. 2023 active Not Available Not Available Not Avai lable losartan 100 mg tablet Take 1 tablet every day by oral route. 2023 active Not Available Not Available Not Avai lable Symbicort 160 mcg-4.5 mcg/actuati on HFA aerosol inhaler Inhale 2 puffs twice a day by inhalatio n route as directed for 30 days. 2023 active Not Available Not Available Not Avai lable losartan potassium (bulk) 03/24 completed Not Available Not Available Not Available Vitals Date Recorded Body height Body mass index (BMI) Body weight Body temperature Heart rate Respiratory rate Oxygen saturation Oxygen saturation in Arterial blood by Pulse oximetry Systolic blood pressure Diastolic blood pressure Provider Name and Address Organization Details Last Updated DateTime 4 180.34 cm 42.8 kg/m2 619243. 86 g 97.7 [degF] 70 /min 18 /min 97 % 97 % 132 mm[Hg] 82 mm[Hg] Princess España [facility] 4 12:03:15 Date Recorded Body height Body mass index (BMI) Body weight Heart rate Oxygen saturation Oxygen saturation in Arterial blood by Pulse oximetry Systolic blood pressure Diastolic blood pressure Provider Name and Address Organization Details Last Updated DateTime 4 180.34 cm 42.3 kg/m2 664142. 49 g 82 /min 99 % 99 % 122 mm[Hg] 64 mm[Hg] Dior Scales [facility] 14:48:32 Social History Question Answer Notes LastModified by Organizat ion Details LastModified Time Tobacco Smoking Status Current Some Day Smoker Not Available Health Note 03/17/2024 15:23:38 Do You Have An Advance Directive? No [email or web address] Information not available 03/17/2024 What Is Your Level Of Alcohol Consumption? None [email or web address] Information not available 03/17/2024 What Is Your Level Of Caffeine Consumption? Occasional [email or web address] Information not available 03/17/2024 Are You Currently Employed? 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 3-4 Times Per Week [email or web address] Information not available 03/17/2024 E-cigarettes Or Vaporization Device? Uses Nicotine Containing Device [email or web address] Information not available 03/17/2024 How Many Packs Per Day (PPD)? 1/4 Pack Per Day [email or web address] Information not available 03/17/2024 How Long Have You Smoked? 5 [email or web address] Information not available 03/17/2024 What Was The Date Of Your Most Recent Tobacco Screening? 03/24/2024 [email or web address] Information not available 03/17/2024 What Is Your Relationship Status? Single [email or web address] Information not available 03/17/2024 Do You Use Any Illicit Or Recreational Drugs? No [email or web address] Information not available 03/17/2024 Sex: Unknown Functional Status Question Answer Note LastModified by Organization D etails LastModified Time What is your exercise level? Moderate [email or web address] Information not available 03/17/2024 Mental Status None recorded. Family History Relationship Description Onset Age of this Age Resolved Age Notes LastModified by Organization Details LastModified Time Mother Family history of malignant neoplasm [email or web address] Not available 2023 15:23:37 Father Diabetes mellitus [email or web address] Not available 2023 15:23:37 Father Heart disease [email or web address] Not available 2023 15:23:37 Father Hypertensive disorder [email or web address] Not available 2023 15:23:37 Unspecified Relation Disorder of thyroid gland [email or web address] Not available 2023 15:23:37 Medical History Condition Response Attention-deficit Hyperactivity Disorder N High Blood Pressure Y Thyroid Problems Y COPD N Depression N Anemia N Diabetes N Anxiety Disorder Y Bleeding Disorder N Arthritis N Hyperlipidemia N Cancer N Stroke N Asthma Y Seizures N Heart Disease N Fibromyalgia N Osteoporosis N Kidney Disease N Past Encounters Encounter ID Performer Location Encounter Start Date Encounter Closed Date Diagnosis/Indication Diagnosis SNOMED-CT Code Diagnosis ICD10 Code Diagnosis Note [id number] JODEE ZHANG APRN-WOOD MODEL MAKER [facility]) [address] [place] [address] 01/06/2024 11:49:43 01/06/2024 12:26:32 Simple laceration of scalp 462090135 S01.01XA [id number] Terri Lynn APRN, [facility] [address] [place] [address] 03/24/2024 14:32:19 03/24/2024 15:39:11 Anxiety 32625829 F41.9 Asthma 075871656 J45.90 9 Obstructiv e sleep apnea syndrome 15104905 G47.33 Benign ess ential hypertension 6888585 I10 History of Graves' disease 5755223266 53798 Z86.39 Impacted c erumen in right ear 1345741931 145567 H61.21 History an d physical examination, annual for health maintenance 03364230 Z00.00 Seasonal a llergic rhinitis 455569774 J30.2 Erectile dysfunction 860 034555 N52.9 Chronic ob structive pulmonary disease 38163784 J44.9 Health Concerns Section Related Observation LastModified by Organization Detai ls LastModified Time None Recorded Concern Status LastModified by Organization Details LastModified Time None Recorded Advance Directives Directive N: Payers Encounter Date Sequence Insurance Name Policy Number Policy Marie Covered Member ID Marie Member ID Guarantor Name 01/06/2024 1 [place] [id number] Hamlet H Jossue [id number] Hamlet H Jossue 03/24/2024 1 [place] [id number] Hamlet H Jossue [id number] Hamlet H Jossue Notes Date Note Type Note Provider Name and Address Organization Details Recorded Time 01/06/2024 text/html Hamlet is a 48 year old male who presents for an injury to the scalp that occurred about 20 minutes before arrival. 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 As he stood up he hit his head on the underside of the vehicle and cut the left parietal scalp. He came here immediately for evaluation. He is up-to-date on his tetanus, his last Tdap was 12/01/2020. He denies any lightheadedness or dizziness. No neck pain. His past medical history significant for allergies, asthma, hypertension. Social history: Smoker. JODEE ZHANG, CANDIDO-WOOD MODEL MAKER [address] [place] [address], [phone], [facility] 01/06/2024 12:25:16 03/24/2024 text/html Hamlet Marcum is a 48-year-old male patient who presents to the office today for a medication check. They have been feeling well and healthy overall. PAST MEDICAL HISTORY:Includes anxiety, asthma, history of Graves? disease, obstructive sleep apnea, hypertension. MEDICATIONS:They report compliance with medications. HOSPITALIZATIONS:Denie s any recent hospitalizations. SOCIAL HISTORY:The patient is a current every-day smoker. He vapes using a nicotine-containing device. Denies any illicit drug use. Occasionally drinks caffeine. Denies any alcohol use. They are here today for a checkup. He complains of some allergy-related symptoms but otherwise has no acute complaints. He is getting ready to move to [place] with his fianc? ? ?e and is soon to be in September. He plans to establish care down there but needed to have a checkup before then. He has no other acute complaints. HEALTH MAINTENANCE:Colonoscop y: He has not yet had a colonoscopy. He has no family history of colon cancer. He does plan on getting colon screening done, but wants to wait until he is established with his fiancee? s insurance once they are and is with his new primary care in [place].Vaccines: He has updated Tdap on 12/01/2020, but defers any other vaccines.lag Hamlet Marcumis a 48 year oldmalepresenting for care. Terri Lynn, CANDIDO, WOOD MODEL MAKER [address] [place] [address], [phone], [place] [facility] 03/26/2024 17:20:48
--- OUTSIDE RECORDS SUMMARY | 2024-06-13 03:45 | XMS_ITS | Continuity of Care Document ---
Author Organization [facility] Address [address] [place] [address] Care Team Providers Care Nurse Healthcare Manager Name Role Phone VIGNESH SCHULER Primary Care [...] establishes with a new primary care in [place]. 7. Asthma: The patient has no acute [...] on this date of service including both yyaa-oi-blxq and jqx-wggx-qp-face time excluding any separately reportable services. lag [email or web address] Not available 03/24/2024 16:16:34 Plan of Treatment Reminders Order Date Submit Date Provider Last Modified By Organization Details Last Modified Time Details Appointments None recorded. Lab None recorded. Referral None recorded. Procedures None recorded. Surgeries None recorded. Imaging None recorded. Medication Orders sildenafil 50 mg tablet 2023 [facility] [address] [place], [address], 15:40:42 Symbicort 160 mcg-4.5 mcg/actuati on HFA aerosol inhaler 2023 [facility] [address] [place], [address], 15:40:42 albuterol sulfate HFA 90 mcg/actuati on aerosol inhaler 2023 [facility] [address] [place], [address], 15:40:43 losartan 100 mg tablet 2023 [facility] [address] [place], [address], 10/24/202 4 15:40:41 montelukast 10 mg tablet 2023 024 [facility], [address] [place], [address], 15:37:19 Patient TargetsNo targets recorded. Patient InstructionsNo instructions recorded. Reason for Referral None Reported. Problems Name Problem SNOMED Code Status Onset Date Resolution Date Notes Provider Name and Address Organization Details Recorded Time Benign essential hypertensio n 8718382 Active 2023 Dior Scales [facility] 4 15:33:34 Anxiety 05511318 Active 2023 Nathalie Sun [facility] 4 11:33:35 Asthma 626201161 Active 2023 Nathaliesacha Sun [facility] 4 11:33:49 Graves' disease 688479768 Active 2023 Nathaliesacha Sun [facility] 4 11:34:10 Obstructive sleep apnea syndrome 41446690 Active 2023 Nathaliesacha Sun [facility] 4 11:34:31 Impacted cerumen in right ear 2336920751746 103 Active 2023 Terri Lynn APRN, [employer] [address] , [place], [address], [facility] 4 15:32:55 Seasonal allergic rhinitis 392798271 Active 2023 Terri Lynn APRN, [employer] [address], [place], [address], [facility] 4 15:34:46 Erectile dysfunction 097775919 Active 2023 Terri Lynn APRN, [employer] [address], [place], [address], [facility] 4 15:39:13 Chronic obstructive pulmonary disease 67252814 Active 2023 Bree David garcia, [facility] 4 23:36:24 Problem Notes None recorded. Procedures Surgical History Date Name Laterality Status Provider Name and Address Organization Details Recorded Time 4 Wound Care UC completed JODEE ZHANG, HAND SCUDDER-DOWNSTAIRS MAID [address] [place] [address], [phone], [facility] 01/06/2024 12:23:50 Removal of tonsils completed Not Available Health Note 03/17/2024 15:23:38 Imaging Results None recorded. Procedure Notes None recorded. Medical Equipment None Reported. Allergies Allergen ID Allergen Name Allergen Category Reaction Reaction Severity Criticality Documentation Date Start Date Code Code System Note Provider Name and Address Organization Details Recorded Time [id number] o4wts1ak3 d6566 prednison e medicatio n dizziness Not available Not available 07/01/20232018 8640 RxNorm React ion: Dizzi ness; Comme nt: Annot ation s: NAT MATUTE, LEO SULTANA 2018 8:28A M Also cause d light heade dness ; ; Not Available Not Available Not Available [id number] 35c0f Medicinal product containin g penicilli n and acting as antibacte rial agent (product) medicatio n rash Not available Not available 06/29/20232007 40081 05 SNOMED React ion: Rash; Not Available Not Available Not Available [id number] 29b50 doxycycli ne Not available other Not available [...] and Address Organization Details Last Updated DateTime 180.34 cm 42.3 kg/m2 724923. 49 g 82 /min 99 % 99 % 122 mm[Hg] 64 mm[Hg] [facility] 14:48:32 Social History Question Answer Notes LastModified [...] available 2023 15:23:37 Medical History Condition Response High Blood Pressure Y COPD N Depression N Anxiety Disorder Y Arthritis N Cancer N Stroke N Fibromyalgia N Kidney Disease N Attention-deficit Hyperactivity Disorder N Thyroid Problems Y Anemia N Diabetes N Bleeding Disorder N Hyperlipidemia N Asthma Y Seizures N Heart Disease N Osteoporosis N Past Encounters Encounter ID Performer Location Encounter Start Date Encounter Closed Date Diagnosis/Indication Diagnosis SNOMED-CT Code Diagnosis ICD10 Code Diagnosis Note [id number] Terri Lynn APRN, [facility] [address] [place] [address] 03/24/2024 14:32:19 03/24/2024 15:39:11 Anxiety 28782198 F41.9 Asthma 960486156 J45.90 9 Obstructiv e sleep apnea syndrome 61874211 G47.33 Benign ess ential hypertension 7351064 I10 History of Graves' disease 6379118441 47222 Z86.39 Impacted c erumen in right ear 1958215930 472753 H61.21 History an d physical examination, annual for health maintenance 03969741 Z00.00 Seasonal a llergic rhinitis 501089109 J30.2 Erectile dysfunction 860 263571 N52.9 Chronic ob structive pulmonary disease 04793273 J44.9 Health Concerns Section Related Observation LastModified by Organization Detai ls LastModified Time None Recorded Concern Status LastModified by Organization Details LastModified Time None Recorded Payers Encounter Date Sequence Insurance Name Policy Number Policy Marie Covered Member ID Marie Member ID Guarantor Name 03/24/2024 1 [place] [id number] Hamlet Marcum [id number] Hamlet Marcum Notes Date Note Type Note Provider Name and Address Organization Details Recorded Time 03/24/2024 text/html Hamlet Marcum is a 48-year-old [...] He is getting ready to move to [place] with his fianc? ? ?e and is [...] is with his new primary care in [place].Vaccines: He has updated Tdap on 12/01/2020, but defers any other vaccines.lag Hamlet Marcumis a 48 year oldmalepresenting for care. Terri Lynn, HAND SCUDDER, [employer]STAIRS [employer] [address] [place] [address], [phone], [facility] 03/26/2024 17:20:48
== END 2024-06-06 17:09 | disposition home or self-care (01) ==
LOC: CHSED 17:13
PROVIDERS: Emergency Provider Emergency Medicine; PCP Internal Medicine
DX: J32.9 Chronic sinusitis, unspecified (principal)
CPT/HCPCS: 99283

== ENCOUNTER 2024-06-24 15:26 | Emergency (ER) | payer SELFPAY ==
--- NOTE | ~2024-06-24 | XR_ITS ---
HISTORY: Lt. knee pain in region of patella x1 week, NKI COMPARISON: None TECHNIQUE: 3 views of the left knee were performed FINDINGS: No acute or subacute fracture. Medial tibiofemoral joint space narrowing is identified. Small suprapatellar joint effusion is identified. The infrapatellar joint space is clear. IMPRESSION: Small suprapatellar joint effusion, without acute fracture. Reviewed, dictated and finalized at location A. DIRECTOR OF CREATIVE STRATEGY
[2024-06-24 15:26] VITALS: BP 162/56; PULSE 78; RESP 16; TEMP 36.5; O2SAT 98
--- OUTSIDE RECORDS SUMMARY | 2024-06-24 15:28 | XMS_ITS | Clinical Summary ---
Author Organization [facility] Address [address] [place] [address]. 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
--- OUTSIDE RECORDS SUMMARY | 2024-06-24 15:28 | XMS_ITS | Data Portability ---
Author Organization [facility], [address] ([place]) Address [address] [place] [address] Care Team Providers Care Obiee Report Developer Name Role Phone VIGNESH SCHULER Primary Care [...] establishes with a new primary care in [place]. 7. Asthma: The patient has no acute [...] on this date of service including both znfy-uw-xfii and zas-aqah-ud-face time excluding any separately reportable services. lag [email or web address] Not available 03/24/2024 16:16:34 Plan of Treatment Reminders Order Date Submit Date Provider Last Modified By Organization Details Last Modified Time Details Appointments None recorded. Lab None recorded. Referral None recorded. Procedures None recorded. Surgeries None recorded. Imaging None recorded. Medication Orders sildenafil 50 mg tablet 2023 [facility] [address] [place], [address], 15:40:42 Symbicort 160 mcg-4.5 mcg/actuati on HFA aerosol inhaler 2023 [facility] [address] [place], [address], 4 15:40:42 albuterol sulfate HFA 90 mcg/actuati on aerosol inhaler 2023 [facility] [address] [place], [address], 15:40:43 losartan 100 mg tablet 2023 [facility] [address] [place], [address], 15:40:41 montelukast 10 mg tablet 2023 024 [facility], [place], [address], 15:37:19 Patient TargetsNo targets recorded. Patient Instructions Encounter Date Encounter Id Patient Instructions Last Modified By Organization Details Last Modified Time 01/06/2024 [id number] I discussed with the patient that this [...] lightheadedness, dizziness he should return for reevaluation. [email or web address] Not available 01/06/2024 12:25:12 Reason for Referral None Reported. Problems Name Problem SNOMED Code Status Onset Date Resolution Date Notes Provider Name and Address Organization Details Recorded Time Benign essential hypertensio n 4207587 Active 2023 Dior Yordy [facility] 4 15:33:34 Anxiety 10528138 Active 2023 Nathalie Sun [facility] 4 11:33:35 Asthma 432969145 Active 2023 Nathalie Sun [facility] 4 11:33:49 Graves' disease 863600981 Active 2023 Nathaliesacha Sun [facility] 4 11:34:10 Obstructive sleep apnea syndrome 81257872 Active 2023 Nathaliesacha Sun [facility] 4 11:34:31 Impacted cerumen in right ear 3063419410680 103 Active 2023 Terri Lynn, CLINICAL TRANSPLANT COORDINATOR, [facility] [address] [place] [address], [phone] , [facility] 4 15:32:55 Seasonal allergic rhinitis 825183048 Active 2023 Terri Lynn APRN, [facility] [address] [place] [address], [phone], [facility] 4 15:34:46 Erectile dysfunction 202018096 Active 2023 Terri Lynn APRN, [facility] [address] [place] [address], [phone], [facility] 4 15:39:13 Chronic obstructive pulmonary disease 24288538 Active 2023 Bree Hernandez [facility] 4 23:36:24 Problem Notes None recorded. Procedures Surgical History Date Name Laterality Status Provider Name and Address Organization Details Recorded Time 4 Wound Care UC completed JODEE ZHANG APRN-[facility] [address] [place] [address], [phone], [facility] 01/06/2024 12:23:50 Removal of tonsils completed Not Available Health Note 03/17/2024 15:23:38 Imaging Results None recorded. Procedure Notes None recorded. Medical Equipment None Reported. Allergies Allergen ID Allergen Name Allergen Category Reaction Reaction Severity Criticality Documentation Date Start Date Code Code System Note Provider Name and Address Organization Details Recorded Time [id number] d6566 prednison e medicatio n dizziness Not available Not available 07/01/20232018 8640 RxNorm React ion: Dizzi ness; Comme nt: Annot ation s: NAT MATUTE, LEO SULTANA 2018 8:28A M Also cause d light heade dness ; ; Not Available Not Available Not Available [id number] Product containin g penicilli n and antibioti c (product) medicatio n rash Not available Not available 06/29/20232007 39199 05 SNOMED React ion: Rash; Not Available Not Available Not Available [id number] 29b50 doxycycli ne Not available other Not [...] Not Available Vitals Date Recorded Body height Provider Name an d Address Organization Details Last Updated DateTime 01/06/2024 180.34 cm [facility] 12:02:58 Date Recorded Body mass index (BMI) Body weight Provider Name and Address Organization Details Last Updated DateTime 01/06/2024 42.8 kg/m2 289574.86 g [facility] 01/06/2024 12:03:05 Date Recorded Body temperature Provider Name a nd Address Organization Details Last Updated DateTime 01/06/2024 97.7 [degF] [facility] 01/06/2024 12:03:20 Date Recorded Heart rate Provider Name an d Address Organization Details Last Updated DateTime 01/06/2024 70 /min [facility] 01/06/2024 12:03:22 Date Recorded Respiratory rate Provider Name a nd Address Organization Details Last Updated DateTime 01/06/2024 18 /min Princess España [facility] 01/06/2024 12:03:24 Date Recorded Oxygen saturation Oxygen saturation in Arterial blood by Pulse oximetry Provider Name and Address Organization Details Last Updated DateTime 01/06/2024 97 % 97 % Princesstera España [facility] 01/06/2024 12:03:31 Date Recorded Pain severity - 0-10 verbal numeric rating [Score] - Reported Provider Name and Address Organization Details Last Updated DateTime 01/06/2024 5 Princess [facility] 01/06/2024 12:03:38 Date Recorded Body height Provider Name an d Address Organization Details Last Updated DateTime 03/24/2024 180.34 cm Dior Scales [facility] D [facility] 03/24/2024 14:48:10 Date Recorded Body mass index (BMI) Body weight Provider Name and Address Organization Details Last Updated DateTime 03/24/2024 42.3 kg/m2 291814.49 g Dior Scales [facility] IELD [facility] 03/24/2024 14:48:15 Date Recorded Heart rate Provider Name an d Address Organization Details Last Updated DateTime 03/24/2024 82 /min Dior Scales [facility] D [facility] 03/24/2024 14:48:36 Date Recorded Oxygen saturation Oxygen saturation in Arterial blood by Pulse oximetry Provider Name and Address Organization Details Last Updated DateTime 03/24/2024 99 % 99 % [facility] 03/24/2024 14:48:40 Date Recorded Systolic blood pressure Diastolic blood pressure Provider Name and Address Organization Details Last Updated DateTime 01/06/2024 132 mm[Hg] 82 mm[Hg] Princess España [facility] 01/06/2024 12:03:15 Date Recorded Systolic blood pressure Diastolic blood pressure Provider Name and Address Organization Details Last Updated DateTime 03/24/2024 122 mm[Hg] 64 mm[Hg] Dior [facility] 03/24/2024 14:48:32 Social History Question Answer Notes LastModified [...] available 2023 15:23:37 Medical History Condition Response Diabetes N Anxiety Disorder Y Bleeding Disorder N Attention-deficit Hyperactivity Disorder N High Blood Pressure Y Arthritis N Hyperlipidemia N Cancer N Stroke N Thyroid Problems Y Asthma Y Depression N COPD N Anemia N Seizures N Heart Disease N Fibromyalgia N Osteoporosis N Kidney Disease N Past Encounters Encounter ID Performer Location Encounter Start Date Encounter Closed Date Diagnosis/Indication Diagnosis SNOMED-CT Code Diagnosis ICD10 Code Diagnosis Note [id number] JODEE ZHANG APRN-[facility] [address] [place] [address] 01/06/2024 11:49:43 01/06/2024 12:26:32 Simple laceration of scalp 186950590 S01.01XA [id number] Terri Lynn APRN, [facility] [address] [place] [address] 03/24/2024 14:32:19 03/24/2024 15:39:11 Anxiety 37220184 F41.9 Asthma 083447594 J45.90 9 Obstructiv e sleep apnea syndrome 16775115 G47.33 Benign ess ential hypertension 0917848 I10 History of Graves' disease 2365343938 45306 Z86.39 Impacted c erumen in right ear 2865959548 881880 H61.21 History an d physical examination, annual for health maintenance 84972748 Z00.00 Seasonal a llergic rhinitis 060396826 J30.2 Erectile dysfunction 860 126427 N52.9 Chronic ob structive pulmonary disease 59183700 J44.9 Health Concerns Section Related Observation LastModified by Organization Detai ls LastModified Time None Recorded Concern Status LastModified by Organization Details LastModified Time None Recorded Advance Directives Directive N: Payers Encounter Date Sequence Insurance Name Policy Number Policy Marie Covered Member ID Marie Member ID Guarantor Name 01/06/2024 1 [place] [id number] Hamlet Baker Jossue [id number] Hamlet Baker Jossue 03/24/2024 1 [place] [id number] Hamlet Baker Jossue [id number] Hamlet Baker Jossue Notes Date Note Type Note Provider [...] asthma, hypertension. Social history: Smoker. JODEE ZHANG, CANDIDO-[facility] [address] [place] [address], [phone], [facility] 01/06/2024 12:25:16 03/24/2024 text/html Hamlet Marcum is [...] He is getting ready to move to [place] with his fianc? ? ?e and is [...] is with his new primary care in [place].Vaccines: He has updated Tdap on 12/01/2020, but defers any other vaccines.lag Hamlet Marcumis a 48 year oldmalepresenting for care. Terri Lynn, CANDIDO, [facility] [address] [place] [address], [phone], [facility] 03/26/2024 17:20:48
--- NOTE | 2024-06-24 16:08 | ED_ITS ---
HPI - Extremity Injury (Lower) General Chief Complaint: Extremity Injury, Lower Stated Complaint: left knee pain Time Seen by Provider: 06/24/24 15:27 Source: patient Mode of arrival: ambulatory Limitations: no limitations History of Present Illness HPI Narrative: Patient is a 48-year-old male with a left knee pain for the past 3 days. Pain is getting worse. No definite injury. He is having some bruising in the same area of the left distal knee. MD complaint: knee injury ( No definite injury) Onset (ago): day(s) (3) Type of Injury: unknown Place: home and work Severity: moderate Severity scale (1-10): 5 Relieving factors: immobilization Exacerbating factors: weight bearing, movement and palpation Context: other ( unknown) Associated symptoms: able to partially bear weight Other symptoms: none Treatments prior to arrival: NSAIDS Related Data Allergies Allergy/AdvReac Type Severity Reaction Status Date / Time doxycycline Allergy Anaphylaxis Verified 06/24/24 15:30 Penicillins Allergy Anaphylaxis Verified 06/24/24 15:30 prednisone Allergy Anaphylaxis Verified 06/24/24 15:30 Review of Systems Review of Systems: All systems reviewed & are unremarkable except as noted in HPI and below Constitutional: Constitutional: Reports no additional constitutional complaints Eyes: Eyes: Reports no additional eye complaints ENT: Reports system reviewed and no additional complaints, except as documented Cardiovascular: Cardiovascular: Reports no additional cardiovascular complaints Respiratory: Respiratory: Reports no additional respiratory complaints Gastrointestinal: Gastrointestinal: Reports no additional gastrointestinal complaints Genitourinary: Genitourinary: Reports no additional male genitourinary complaints Musculoskeletal: Musculoskeletal: Reports no additional musculoskeletal complaints Integumentary/Breasts: Skin/Breast: Reports system reviewed and no additional complaints, except as docu Neurologic: Reports system reviewed and no additional complaints, except as documented Psychiatric: Psychiatric: Reports no additional psychiatric complaints Endocrine: Endocrine: Reports no additional endocrine complaints Hematologic/Lymphatic: Hematologic/Lymphatic: Reports no additional hematologic/lymphatic complaints Allergic/Immunologic: Allergic/Immunologic: Reports no additional allergic/immunologic complaints Exam Const: General: healthy appearing Nutritional Appearance: well nourished Orientation/consciousness: patient oriented x3 HENMT: Head: normal to inspection Ears: external ears normal Face/Nose/Sinus: Normal external nose present Eyes: Conjunctivae: conjunctivae normal Pupils: Equal, round and reactive pupils present EOM: EOMs intact bilaterally Neck: Neck: normal visual inspection Chest: Chest palpation & inspection: normal inspection of the chest Resp: Effort & Inspection: normal respiratory effort and not labored Auscultation: clear to auscultation bilaterally and no crackles Cardio: Rate: regular rate Rhythm: regular rhythm Heart sounds: no murmurs GI: Inspection: non-distended GI Palp: Yes Soft to palpation and No Tenderness to palpation present (GI) Auscultation: normal bowel sounds : General: Yes bladder normal to palpation Back/Spine/Pelvis: Back: no CVA tenderness Skin: General skin exam: normal color Rashes: no rashes Wounds: no wounds Other: ecchymosis of the left knee distally Neuro: General: patient oriented x3, moves all extremities and no meningeal signs Extrem: General: abnormal to inspection Other: left knee is tender distal aspect with some ecchymosis Psych: Mental Status: mental status grossly normal Affect: normal affect Attitude: cooperative Course Vital Signs Vital signs: Vital Signs Temperature 36.5 C 06/24/24 15:26 Pulse Rate 78 06/24/24 15:26 Respiratory Rate 16 06/24/24 15:26 Blood Pressure 162/56 H 06/24/24 15:26 Pulse Oximetry 98 06/24/24 15:26 Oxygen Delivery Room Air 06/24/24 15:26 Temperature 36.5 C 06/24/24 15:26 Pulse Rate 78 06/24/24 15:26 Respiratory Rate 16 06/24/24 15:26 Blood Pressure 162/56 H 06/24/24 15:26 Pulse Oximetry 98 06/24/24 15:26 Oxygen Delivery Room Air 06/24/24 15:26 MDM - Extremity Injury (Lower) MDM Narrative Medical decision making narrative: patient is a 48-year-old male with left knee pain for the past few days. We will do x-rays at this time. Imaging Data Attestation: I personally reviewed and interpreted this imaging study as follows: Radiologist's impression: Left knee x-ray shows IMPRESSION: Small suprapatellar joint effusion, without acute fracture. Discharge Plan Discharge Clinical Impression: Derangement of knee Qualifiers: Laterality: left Qualified Code(s): M23.92 - Unspecified internal derangement of left knee Patient Disposition: Home, Self-Care Condition: Stable Instructions: Knee Pain (ED) Additional Instructions: Please follow-up with primary doctor in the next week. I suggested MRI of the left knee for further evaluation. Patient Language: Slovak Prescriptions: New tramadol 50 mg tablet 50 mg PO Q8H PRN (Reason: pain) Qty: 20 0RF Rx Instructions: 1-2 tabs per dose No Action clarithromycin 500 mg tablet 500 mg PO Q12H 10 Days Qty: 20 0RF ipratropium bromide 42 mcg (0.06 %) spray,non-aerosol 2 spray intranasal QID 4 Days Qty: 15 0RF Rx Instructions: administer into each nostril Follow-up/Referrals: Katelin Paz MD [Primary Care Provider] - Time of Disposition: 17:08
--- OUTSIDE RECORDS SUMMARY | 2024-06-24 16:08 | XMS_ITS | Clinical Summary ---
Author Organization [facility] Address [address] [place] [address]. 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
[2024-06-24 17:17] VITALS: BP 160/79; PULSE 70; RESP 16; TEMP 36.6; O2SAT 97
== END 2024-06-24 17:17 | disposition home or self-care (01) ==
PROVIDERS: Emergency Provider Emergency Medicine; PCP Internal Medicine
DX: M23.92 Unspecified internal derangement of left knee (principal)
CPT/HCPCS: 73562; 99283

== ENCOUNTER 2024-07-09 10:18 | Outpatient (CLI) | payer OTHER, SELFPAY ==
--- NOTE | ~2024-07-09 | MR_ITS ---
EXAMINATION: MR knee LT wo con DATE: 07/09/2024 11:11 INDICATION: Lt. knee pain x1 month, NKI TECHNIQUE: Magnetic resonance imaging (MRI) of the knee was performed without intravenous contrast. S equences included axial PD-weighted FS FSE, coronal PD-weighted FSE and PD-weighted FS FSE, sagittal PD-weighted FSE, and sagittal T2-weighted FS FSE. COMPARISON: X-ray left knee 06/24/2024. FINDINGS: Medial compartment: Complex tear of the posterior horn of the medial meniscus with apical and vertically oriented compone nts at the posterior horn posterior horn and an oblique component extending to the superior surface a t the junction of the posterior horn and body. Mild diffuse cartilage thinning. Lateral compartment: Perimeniscal cyst adjacent to the posterior horn of the lateral meniscus. Cartilage intact. Patellofemoral compartment: Cartilage and retinacula intact. Ligaments and tendons: The ACL, PCL, MCL, and LCL are intact. Remaining flexor and extensor tendons are intact. Fluid: Small volume joint effusion. Osseous/other: No suspicious focal or diffuse marrow signal. IMPRESSION: Complex tear of the posterior horn, medial meniscus. An occult posterior horn, lateral meniscal tear is also suspected based on the presence of a perimeni scal cyst. Reviewed, dictated and finalized at location K. OGRAPHIC PRESS SET UP OPERATOR IMPRESSION: Complex tear of the posterior horn, medial meniscus. An occult posterior horn, lateral meniscal tear is also suspected based on the presence of a perimeniscal cyst.
--- OUTSIDE RECORDS SUMMARY | 2024-07-09 10:23 | XMS_ITS | Clinical Summary ---
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 [employer] Gender Identity Not on file Sexual Orientation [...] - 19+ 3-dose series) 12/20/1995 COVID-19 Vaccine (2023-2 5 season) 2024 Influenza Adult (#1) 2024 Meningococcal B Vaccine Aged Out No l onger eligible based on patient's age to complete this topic Meningococcal Vaccine Aged Out No [place] eligible based on patient's age to complete this topic RSV Immunizations Under 20 Months Aged Out No longer eligible based on patient's age to complete this topic Insurance [address] [address] Care Teams Orthopedic Shoe Fitter Relationship Specialty Start Date End Date Desi Dang MD [address] [place], [place] [address] PCP - General FAMILY PRACTICE 06/15/20
--- OUTSIDE RECORDS SUMMARY | 2024-07-09 10:23 | XMS_ITS | Data Portability ---
Author Organization [facility], [address] Neurology ([place]) Address [address] 4th [place] [address] Care Team Providers Care Divisional Storekeeper Name Role Phone VIGNESH SCHULER Primary Care Provider [phone] Assessment Encounter Date Assessment Date Assessment LastModified [...] currently following any specialists. 6. History of Graves disease: The patient recently had thyroid labs done back in the spring that were stable. Not currently following anybody in Endocrinology. Defers getting any labs at this time. He will plan to get bloodwork done when he establishes with a new primary care in [place]. 7. Asthma: The patient has no acute [...] on this date of service including both zcwz-bx-dnki and slq-njgg-em-face time excluding any separately reportable services. lag [email or web address] Not available 03/24/2024 16:16:34 Plan of Treatment Reminders Order Date Submit Date Provider Last Modified By Organization Details Last Modified Time Details Appointments None recorded. Lab None recorded. Referral None recorded. Procedures None recorded. Surgeries None recorded. Imaging None recorded. Medication Orders sildenafil 50 mg tablet 2023 [facility] [address] [place], [address], 15:40:42 Symbicort 160 mcg-4.5 mcg/actuati on HFA aerosol inhaler 2023 [facility] [address] [place], [address], 15:40:42 albuterol sulfate HFA 90 mcg/actuati on aerosol inhaler 2023 [facility] [address] [place], [address], 15:40:43 losartan 100 mg tablet 2023 [facility] [address] [place], [address], 15:40:41 montelukast 10 mg tablet 2023 024 [facility], [address], [place], [address], 15:37:19 Patient TargetsNo targets recorded. Patient Instructions Encounter Date Encounter Id Patient Instructions Last Modified By Organization Details Last Modified Time 01/06/2024 [id number] I discussed with the patient that this [...] lightheadedness, dizziness he should return for reevaluation. [email or web address] Not available 01/06/2024 12:25:12 Reason for Referral None Reported. Problems Name Problem SNOMED Code Status Onset Date Resolution Date Notes Provider Name and Address Organization Details Recorded Time Benign essential hypertensio n 5612901 Active 2023 Dior Marengo [facility] 4 15:33:34 Anxiety 22527774 Active 2023 Nathalie Sun [facility] 4 11:33:35 Asthma 598249698 Active 2023 Nathalie Sun [facility] 4 11:33:49 Graves' disease 457070790 Active 2023 Nathalie Sun [facility] 4 11:34:10 Obstructive sleep apnea syndrome 30255118 Active 2023 Nathaliesacha Sun [facility] 4 11:34:31 Impacted cerumen in right ear 4527098712955 103 Active 2023 Terri Lynn, HOURLY SHIFT, PEN RIDER [address] , [place], [address] , [facility] 4 15:32:55 Seasonal allergic rhinitis 904293605 Active 2023 Terri Lynn APRN, P[facility] RIDER [address] [place] [address], [phone], [facility] 15:34:46 Erectile dysfunction 980203566 Active 2023 Terri Lynn APRN, P[facility] RIDER [address] [place] [address], [phone], [facility] 4 15:39:13 Chronic obstructive pulmonary disease 05318706 Active 2023 Bree David [facility] 4 23:36:24 Problem Notes None recorded. Procedures Surgical History Date Name Laterality Status Provider Name and Address Organization Details Recorded Time 4 Wound Care UC completed JODEE ZHANG APRN-PEN RIDER [address] [place] [address], [phone], [facility] 01/06/2024 12:23:50 Removal of tonsils completed Not Available Health Note 03/17/2024 15:23:38 Imaging Results None recorded. Procedure Notes None recorded. Medical Equipment None Reported. Allergies Allergen ID Allergen Name Allergen Category Reaction Reaction Severity Criticality Documentation Date Start Date Code Code System Note Provider Name and Address Organization Details Recorded Time 7753831 prednison e medicatio n dizziness Not available Not available 07/01/20232018 8640 RxNorm React ion: Dizzi ness; Comme nt: Annot ation s: NAT MATUTE, LEO SULTANA 2018 8:28A M Also cause d light heade dness ; ; Not Available Not Available Not Available 560708 Product containin g penicilli n and antibioti c (product) medicatio n rash Not available Not available 06/29/20232007 22679 05 SNOMED React ion: Rash; Not Available Not Available Not Available 225482 doxycycli ne Not available other Not available [...] saturation in Arterial blood by Pulse oximetry Pain severity - 0-10 verbal numeric rating [Score] - Reported Systolic blood pressure Diastolic blood pressure Provider Name and Address Organization Details Last Updated DateTime 4 180.34 cm 42.8 kg/m2 467059. 86 g 97.7 [degF] 70 /min 18 /min 97 % 97 % 5 132 mm[Hg] 82 mm[Hg] Princess España [facility] 4 12:03:15 Date Recorded Body height Body mass index (BMI) Body weight Heart rate Oxygen saturation Oxygen saturation in Arterial blood by Pulse oximetry Systolic blood pressure Diastolic blood pressure Provider Name and Address Organization Details Last Updated DateTime 4 180.34 cm 42.3 kg/m2 108552. 49 g 82 /min 99 % 99 % 122 mm[Hg] 64 mm[Hg] Dior Scales [facility] 4 14:48:32 Social History Question Answer Notes LastModified [...] SNOMED-CT Code Diagnosis ICD10 Code Diagnosis Note [id number] JODEE ZHANG APRN-PEN RIDER [facility]) [address] [place] [address] 01/06/2024 11:49:43 01/06/2024 12:26:32 Simple laceration of scalp 760180220 S01.01XA [id number] Terri Lynn APRN, PEN RIDER [facility]) [address] [place] [address] 03/24/2024 14:32:19 03/24/2024 15:39:11 Anxiety 07623746 F41.9 Asthma 436519935 J45.90 9 Obstructiv e sleep apnea syndrome 99442922 G47.33 Benign ess ential hypertension 3225516 I10 History of Graves' disease 5876669192 93360 Z86.39 Impacted c erumen in right ear 4929946137 112796 H61.21 History an d physical examination, annual for health maintenance 26399285 Z00.00 Seasonal a llergic rhinitis 878577218 J30.2 Erectile dysfunction 860 015246 N52.9 Chronic ob structive pulmonary disease 51779790 J44.9 Health Concerns Section Related Observation LastModified by Organization Detai ls LastModified Time None Recorded Concern Status LastModified by Organization Details LastModified Time None Recorded Advance Directives Directive N: Payers Encounter Date Sequence Insurance Name Policy Number Policy Marie Covered Member ID Marie Member ID Guarantor Name 01/06/2024 1 [place] [id number] Hamlet Baker Jossue [id number] Hamlet Baker Jossue 03/24/2024 1 [place] [id number] Hamlet Baker Jossue [id number] Hamlet Baker Jossue Notes Date Note [...] asthma, hypertension. Social history: Smoker. JODEE ZHANG, CANDIDO-PEN RIDER [address] [place] [address], [phone], [facility] 01/06/2024 12:25:16 03/24/2024 text/html Hamlet Marcum is a 48-year-old male patient who presents to the office today for a medication check. They have been feeling well and healthy overall. PAST MEDICAL HISTORY:Includes anxiety, asthma, history of Graves disease, obstructive sleep apnea, hypertension. MEDICATIONS:They report [...] He is getting ready to move to [place] with his [employer] and is soon to be in September. [...] wait until he is established with his [employer] insurance once they are and is with his new primary care in [place].Vaccines: He has updated Tdap on 12/01/2020, but defers any other vaccines.lag Hamlet Marcumis a 48 year oldmalepresenting for care. Terri Lynn, CANDIDO, PEN RIDER [address] [place] [address], [phone], [facility] 03/26/2024 17:20:48
== END 2024-07-09 10:19 | disposition home or self-care (01) ==
PROVIDERS: PCP Internal Medicine; Visit Provider Internal Medicine
DX: M25.562 Pain in left knee (principal); S83.232A Complex tear of medial meniscus, current injury, left knee, initial encounter
CPT/HCPCS: 73721

== ENCOUNTER 2024-08-08 10:15 | Emergency (ER) | payer OTHER, SELFPAY ==
[2024-08-08 10:24] VITALS: BP 141/82; PULSE 69; RESP 18; TEMP 36.4; O2SAT 99
[2024-08-08 11:13] VITALS: BP 133/82; PULSE 67; RESP 15; O2SAT 98
--- OUTSIDE RECORDS SUMMARY | 2024-08-08 12:00 | XMS_ITS | Data Portability ---
Author Organization [facility], [address]rology ([place]) Address [address] 4th [place] [address] Care Team Providers Care Transition Nurse Name Role Phone VIGNESH SCHULER Primary Care [...] establishes with a new primary care in [place]. 7. Asthma: The patient has no acute [...] on this date of service including both odxk-sx-rrjl and mmd-rqrp-fl-face time excluding any separately reportable services. lag [email or web address] Not available 03/24/2024 16:16:34 Plan of Treatment Reminders Order Date Submit Date Provider Last Modified By Organization Details Last Modified Time Details Appointments None recorded. Lab None recorded. Referral None recorded. Procedures None recorded. Surgeries None recorded. Imaging None recorded. Medication Orders sildenafil 50 mg tablet 2023 [facility] [address] [place], [address], 15:40:42 Symbicort 160 mcg-4.5 mcg/actuati on HFA aerosol inhaler 2023 [facility] [address] [place], [address], 15:40:42 albuterol sulfate HFA 90 mcg/actuati on aerosol inhaler 2023 [facility] [address] [place], [address], 15:40:43 losartan 100 mg tablet 2023 [facility] [address] [place], [address], 15:40:41 montelukast 10 mg tablet 2023 024 [facility], [address], [place], [address], 15:37:19 Patient TargetsNo targets recorded. Patient Instructions Encounter Date Encounter Id Patient Instructions Last Modified By Organization Details Last Modified Time 01/06/2024 [id number] I discussed with the patient that this [...] lightheadedness, dizziness he should return for reevaluation. Not available 01/06/2024 12:25:12 Reason for Referral None Reported. Problems Name Problem SNOMED Code Status Onset Date Resolution Date Notes Provider Name and Address Organization Details Recorded Time Benign essential hypertensio n 0879383 Active 2023 Dior Yordy [facility] 4 15:33:34 Anxiety 77372320 Active 2023 Nathalie Sun [facility] 4 11:33:35 Asthma 324379925 Active 2023 Nathalie Sun [facility] 4 11:33:49 Graves' disease 146071774 Active 2023 Nathalie Sun [facility] 4 11:34:10 Obstructive sleep apnea syndrome 50698780 Active 2023 Nathaliesacha Sun [facility] 4 11:34:31 Impacted cerumen in right ear 1862235169812 103 Active 2023 Terri Lynn, PRICING SPECIALIST, SENIOR PRINCIPAL ARCHITECT [address] , [place], [address] , [facility] 4 15:32:55 Seasonal allergic rhinitis 313322038 Active 2023 Terri Lynn APRN, SENIOR PRINCIPAL ARCHITECT [address] [place] [address], [phone], [facility] 4 15:34:46 Erectile dysfunction 141545201 Active 2023 Terri Lynn APRN, SENIOR PRINCIPAL ARCHITECT [address] [place] [address], [phone], [facility] 4 15:39:13 Chronic obstructive pulmonary disease 84586069 Active 2023 Bree David [facility] 4 23:36:24 Problem Notes None recorded. Procedures Surgical History Date Name Laterality Status Provider Name and Address Organization Details Recorded Time Wound Care UC completed JODEE ZHANG APRN-SENIOR PRINCIPAL ARCHITECT [address] [place] [address], [phone], [facility] 01/06/2024 12:23:50 Removal of tonsils completed Not Available Health Note 03/17/2024 15:23:38 Imaging Results None recorded. Procedure Notes None recorded. Medical Equipment None Reported. Allergies Allergen ID Allergen Name Allergen Category Reaction Reaction Severity Criticality Documentation Date Start Date Code Code System Note Provider Name and Address Organization Details Recorded Time 1062703 prednison e medicatio n dizziness Not available Not available 07/01/20232018 8640 RxNorm React ion: Dizzi ness; Comme nt: Annot ation s: NAT MATUTE, LEO SULTANA 2018 8:28A M Also cause d light heade dness ; ; Not Available Not Available Not Available 771955 Product containin g penicilli n (product) medicatio n rash Not available Not available 06/29/20232007 26557 8001 SNOMED React ion: Rash; Not Available Not Available Not Available 706907 doxycycli ne Not available other Not available [...] Updated DateTime 4 180.34 cm 42.8 kg/m2 450272. 86 g 97.7 [degF] 70 /min 18 /min 97 % 97 % 5 132 mm[Hg] 82 mm[Hg] Princess España [facility] 4 12:03:15 Date Recorded Body height Body mass index (BMI) Body weight Heart rate Oxygen saturation Oxygen saturation in Arterial blood by Pulse oximetry Systolic blood pressure Diastolic blood pressure Provider Name and Address Organization Details Last Updated DateTime 4 180.34 cm 42.3 kg/m2 271064. 49 g 82 /min 99 % 99 % 122 mm[Hg] 64 mm[Hg] Dior Scales [facility] 4 14:48:32 Social History Question Answer [...] Stroke N Fibromyalgia N Kidney Disease N Bleeding Disorder N Asthma Y Seizures N Attention-deficit Hyperactivity Disorder N Thyroid Problems Y Anemia N Diabetes N Hyperlipidemia N Heart Disease N Osteoporosis N Past Encounters Encounter ID Performer Location Encounter Start Date Encounter Closed Date Diagnosis/Indication Diagnosis SNOMED-CT Code Diagnosis ICD10 Code Diagnosis Note [id number] JODEE ZHANG APRN-SENIOR PRINCIPAL ARCHITECT Urgent Care [facility]) [address] [place] [address] 01/06/2024 11:49:43 01/06/2024 12:26:32 Simple laceration of scalp 139730330 S01.01XA [id number] Terri Lynn APRN, [facility] [address] [place] [address] 03/24/2024 14:32:19 03/24/2024 15:39:11 Anxiety 48876840 F41.9 Asthma 547991613 J45.90 9 Obstructiv e sleep apnea syndrome 18032101 G47.33 Benign ess ential hypertension 8264288 I10 History of Graves' disease 7897435705 50726 Z86.39 Impacted c erumen in right ear 0588624328 099314 H61.21 History an d physical examination, annual for health maintenance 61066978 Z00.00 Seasonal a llergic rhinitis 061131557 J30.2 Erectile dysfunction 860 714496 N52.9 Chronic ob structive pulmonary disease 00112487 J44.9 Health Concerns Section Related Observation LastModified by Organization Detai ls LastModified Time None Recorded Concern Status LastModified by Organization Details LastModified Time None Recorded Advance Directives Directive N: Payers Encounter Date Sequence Insurance Name Policy Number Policy Marie Covered Member ID Marie Member ID Guarantor Name 01/06/2024 1 [place] [id number] Hamlet Baker Jossue [id number] Hamlet Baker Jossue 03/24/2024 1 [place] [id number] Hamlet Baker Jossue [id number] Hamlet Baker Jossue Notes Date Note [...] allergies, asthma, hypertension. Social history: Smoker. JODEE ZHANG APRN-SENIOR PRINCIPAL ARCHITECT [address] [place] [address], [phone], [facility] 01/06/2024 12:25:16 03/24/2024 text/html Hamlet Marcum is [...] He is getting ready to move to [place] with his [employer] and is soon to be in September. [...] wait until he is established with his [employer] insurance once they are and is with his new primary care in [place].Vaccines: He has updated Tdap on 12/01/2020, but defers any other vaccines.lag Hamlet Marcumis a 48 year oldmalepresenting for care. Terri Lynn, CANDIDO, SENIOR PRINCIPAL ARCHITECT [address] [place] [address], [phone], [facility] 03/26/2024 17:20:48
--- OUTSIDE RECORDS SUMMARY | 2024-08-08 12:00 | XMS_ITS | Clinical Summary ---
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
--- NOTE | 2024-08-08 12:48 | ED.EYEPROB ---
HPI - Eye Problem General Chief complaint: Eye Problems Stated complaint: foreign object in right eye Time Seen by Provider: 08/08/24 11:47 Source: patient Mode of arrival: ambulatory Limitations: no limitations History of Present Illness HPI Narrative: This is a 48 year old male that presents to the ER for foreign body in the right eye. Reports he was grinding metal. He was wearing safety goggles. [place] something fly into his right eye. Reports foreign body sensation. Denies vision changes. Related Data Home Medications ?Medication ?Instructions ?Recorded ?Confirmed ?Last Taken ?Type alprazolam 0.25 mg tablet mg PO 07/29/24 Unknown History fluticasone furoate 200 inhalation 07/29/24 Unknown History mcg-vilanterol 25 mcg/dose inhalation powder (Breo Ellipta) losartan 100 mg tablet mg PO 07/29/24 Unknown History montelukast 10 mg tablet mg PO 07/29/24 Unknown History sildenafil 50 mg tablet mg PO 07/29/24 Unknown History venlafaxine 37.5 mg mg PO 07/29/24 Unknown History capsule,extended release 24 hr Allergies Allergy/AdvReac Type Severity Reaction Status Date / Time doxycycline Allergy Anaphylaxis Verified 08/08/24 11:14 Penicillins Allergy Anaphylaxis Verified 08/08/24 11:14 prednisone Allergy Anaphylaxis Verified 08/08/24 11:14 Review of Systems Review of Systems: CONSTITUTIONAL: Denies fever EYES: Denies visual changes, redness, or discharge. All systems reviewed & are unremarkable except as noted in HPI and below PMFSH Past Medical History Medical History (Updated 08/08/24 @ 12:49 by Judit Verma PA-C) Blocked ear 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 Anxiety Asthma Allergies Family History Family History (Updated 07/29/24 @ 15:20 by Haroldo Campos MA) Father Diabetes mellitus Depression Anxiety Heart disease Mother Ovarian cancer Social History Social History (Updated 07/29/24 @ 15:54 by Haroldo Campos MA) Smoking status: Current some day smoker Tobacco type: cigarettes Alcohol intake: never Substance use: unknown Substance use type: does not use Exam Narrative: GENERAL: Well-appearing, well-nourished, and in no acute distress. HEAD: Normocephalic, atraumatic. EYES: PERRLA and EOMI. Small piece of metal in the conjunctiva lateral to the iris. Visual acuity 20/25 bilaterally. Fluorescein stain exam post removal with small corneal abrasion noted EXTREMITIES: Normal range of motion. No edema. SKIN: Warm, dry, no rash. NEURO: No focal deficits. Alert and oriented x3. PSYCH: Normal mood and affect Course Vital Signs Vital signs: Vital Signs Temperature 97.6 F 08/08/24 10:24 Pulse Rate 69 08/08/24 10:24 Respiratory Rate 18 08/08/24 10:24 Blood Pressure 141/82 H 08/08/24 10:24 Pulse Oximetry 99 08/08/24 10:24 Oxygen Delivery Room Air 08/08/24 10:24 Temperature 97.6 F 08/08/24 10:24 Pulse Rate 67 08/08/24 11:13 Respiratory Rate 15 08/08/24 11:13 Blood Pressure 133/82 08/08/24 11:13 Pulse Oximetry 98 08/08/24 11:13 Oxygen Delivery Room Air 08/08/24 10:24 MDM - Eye Problem MDM Narrative Medical decision making narrative: Patient presents to the ER for foreign body in the right eye. This was easily removed. Will be started on prophylactic antibiotics. Instructed to follow up with Ophthalmology. He was given warnings to return to the ER Differential Diagnosis Differential diagnosis: Likely corneal abrasion and other (foreign body) Critical Care Time Critical Care Time Critical Care Time: No Discharge Plan Discharge Clinical Impression: Foreign body in eyeball, right Qualifiers: Encounter type: initial encounter Qualified Code(s): S05.51XA - Penetrating wound with foreign body of right eyeball, initial encounter Patient Disposition: Home, Self-Care Condition: Stable Instructions: Antibiotic Form, Eye Foreign Body (ED) Additional Instructions: Return to the ER if you experience fever, redness and swelling of your eye, abnormal drainage from your eye, or any other symptoms that are concerning to you Instill antibiotic eye drops as prescribed Follow up with an eye doctor. [facility] if needed Patient Language: Kinyarwanda Prescriptions: New ofloxacin 0.3 % drops 1 drp RIGHT EYE QID 3 Days Qty: 10 0RF No Action venlafaxine 37.5 mg capsule,extended release 24hr PO fluticasone furoate-vilanterol [Breo Ellipta] 200-25 mcg/dose blister with device inhalation losartan 100 mg tablet PO montelukast 10 mg tablet PO alprazolam 0.25 mg tablet PO sildenafil 50 mg tablet PO Follow-up/Referrals: Katelin Paz MD [Primary Care Provider] -
--- OUTSIDE RECORDS SUMMARY | 2024-08-08 13:56 | XMS_ITS | Clinical Summary ---
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
== END 2024-08-08 13:27 | disposition home or self-care (01) ==
PROVIDERS: Emergency Provider Physician Assistant; PCP Internal Medicine
DX: T15.11XA Foreign body in conjunctival sac, right eye, initial encounter (principal); J45.909 Unspecified asthma, uncomplicated; F41.9 Anxiety disorder, unspecified; F17.210 Nicotine dependence, cigarettes, uncomplicated; W44.8XXA Other foreign body entering into or through a natural orifice, initial encounter
CPT/HCPCS: 65205; 65220; 99283; A9270

== ENCOUNTER 2024-08-29 01:23 | Day surgery (SDC) | payer OTHER, SELFPAY ==
[2024-08-22 15:02] VITALS: BMI 41.4
--- NOTE | 2024-08-22 15:14 | PC.NURSE ---
Report to the Outpatient Waiting Room, entrance under the green pavilion located off [facility], at time _1pm_ on date _[id number]_. Planned Procedure Time: _3pm_.? Time changes happen often and if your time is changed the preop area will call you the afternoon before. - You and your visitor will be asked to self-screen and do not enter if you have any COVID symptoms. Please call surgeon if you need to reschedule. - A mask is optional within the hospital at this time. Patients may have clear liquids (water, carbonated beverages, clear teas, apple juice) until 3 hours prior to surgery with a maximum of 20 ounces. - No food from midnight until time of surgery and no smoking, or chewing tobacco (or any form of nicotine). No chewing gum, candy or mints. Take only the following medications with a SIP of water on the morning of surgery: __Breo inhaler,_Alprazolam and or Tramadol if needed.____ DO NOT STOP ANY OF YOUR OTHER PRESCRIPTION MEDICATIONS PRIOR TO SURGERY EXCEPT THE FOLLOWING Hold all vitamins and supplements for 3 days per anesthesiologist. Medications to discontinue per physician Date to take last dose Please no make-up, nail english, hairspray, perfume, deodorant, or body powder the day of surgery.? No jewelry (including any body piercings) or valuables the day of surgery, leave them at home.? Please take a shower or bath the night before, or the morning of, surgery with an antibacterial soap.? Wear comfortable, loose fitting clothing.? - Jewelry must be removed prior to entering the operating room.? Rings and piercings that are not removed may be cut off. - The hospital will not accept responsibility for valuables.? - Please leave all valuables, including medications, at home the day of surgery. If you are going home after surgery, a licensed otr driver must drive you home.? - NO public transportation without another adult if you receive anesthesia. - We recommend that an adult stay with you for 24 hours following discharge. - We also recommend that you do not drive, make important decision, drink alcoholic beverages, or take any drugs that were not prescribed by your health care provider for at least 24 hours after your discharge time. Follow any additional instructions given to you from your surgeon. Telephone instructions given to __Tim__and asked if any additional questions and then verbalized understanding. Patient advised to call surgeon office or pre surgery nurse liaison [phone] if any additional questions.
[2024-08-29] VITALS (7 sets, daily range): BP systolic 96–138; BP diastolic 61–87; PULSE 70–76; RESP 14–18; TEMP 36.1–36.6; O2SAT 94–100
--- OUTSIDE RECORDS SUMMARY | 2024-08-29 01:28 | XMS_ITS | Clinical Summary ---
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
--- OUTSIDE RECORDS SUMMARY | 2024-08-29 01:28 | XMS_ITS | Data Portability ---
Author Organization [facility], [address] [facility] ([place]) Address [address] 4[address] [place] [address] Care Team Providers Care Tanyard Worker Name Role Phone VIGNESH SCHULER Primary Care [...] establishes with a new primary care in [place]. 7. Asthma: The patient has no acute [...] on this date of service including both aznz-am-nunq and bxi-vchg-bw-face time excluding any separately reportable services. lag [email or web address] Not available 03/24/2024 16:16:34 Plan of Treatment Reminders Order Date Submit Date Provider Last Modified By Organization Details Last Modified Time Details Appointments None recorded. Lab None recorded. Referral None recorded. Procedures None recorded. Surgeries None recorded. Imaging None recorded. Medication Orders sildenafil 50 mg tablet 2023 [facility] [address] [place], [address], 15:40:42 Symbicort 160 mcg-4.5 mcg/actuati on HFA aerosol inhaler 2023 [facility] [address] [place], [address], 15:40:42 albuterol sulfate HFA 90 mcg/actuati on aerosol inhaler 2023 [facility] [address] [place], [address], 15:40:43 losartan 100 mg tablet 2023 [facility] [address] [place], [address], 15:40:41 montelukast 10 mg tablet 2023 [facility], [place], [address], 15:37:19 Patient TargetsNo targets recorded. Patient Instructions Encounter Date Encounter Id Patient Instructions Last Modified By Organization Details Last Modified Time 01/06/2024 [id number] I discussed with the patient that this [...] lightheadedness, dizziness he should return for reevaluation. [email or web address] Not available 01/06/2024 12:25:12 Reason for Referral None Reported. Problems Name Problem SNOMED Code Status Onset Date Resolution Date Notes Provider Name and Address Organization Details Recorded Time Benign essential hypertensio n 1291460 Active 2023 Dior Yordy [facility] 4 15:33:34 Anxiety 81359540 Active 2023 Nathalie [facility] 4 11:33:35 Asthma 643336311 Active 2023 Nathalie [facility] 4 11:33:49 Graves' disease 986864626 Active 2023 Nathalie [facility] 4 11:34:10 Obstructive sleep apnea syndrome 01863396 Active 2023 Nathaliesacha [facility] 4 11:34:31 Impacted cerumen in right ear 9021620224908 103 Active 2023 Terri Lynn, DENTAL TECHNICIAN APPRENTICE, DISTRIBUTION SYSTEMS SUPERINTENDENT [address] , [place], [address] , [facility] 4 15:32:55 Seasonal allergic rhinitis 970533304 Active 2023 Terri Lynn APRN, [employer] SUPERINT[employer]ENT [address] [place] [address], [phone], [facility] 4 15:34:46 Erectile dysfunction 060789852 Active 2023 Terri Lynn APRN, DIST[employer] SUPERINTENDENT [address] [place] [address], [phone], [facility] 4 15:39:13 Chronic obstructive pulmonary disease 34117352 Active 2023 Bree [facility] 4 23:36:24 Problem Notes None recorded. Procedures Surgical History Date Name Laterality Status Provider Name and Address Organization Details Recorded Time Wound Care UC completed JODEE ZHANG APRN-DISTRIBUTION SYSTEMS SUPERINTENDENT [address] [place] [address], [phone], [facility] 01/06/2024 12:23:50 Removal of tonsils completed Not Available Health Note 03/17/2024 15:23:38 Imaging Results None recorded. Procedure Notes None recorded. Medical Equipment None Reported. Allergies Allergen ID Allergen Name Allergen Category Reaction Reaction Severity Criticality Documentation Date Start Date Code Code System Note Provider Name and Address Organization Details Recorded Time 6404153 prednison e medicatio n dizziness Not available Not available 07/01/20232018 8640 RxNorm React ion: Dizzi ness; Comme nt: Annot ation s: NAT MATUTE, LEO SULTANA 2018 8:28A M Also cause d light heade dness ; ; Not Available Not Available Not Available 012966 Product containin g penicilli n (product) medicatio n rash Not available Not available 06/29/20232007 54563 8001 SNOMED React ion: Rash; Not Available Not Available Not Available 818813 doxycycli ne Not available other Not available [...] Updated DateTime 4 180.34 cm 42.8 kg/m2 692763. 86 g 97.7 [degF] 70 /min 18 /min 97 % 97 % 5 132 mm[Hg] 82 mm[Hg] Princess España [facility] 4 12:03:15 Date Recorded Body height Body mass index (BMI) Body weight Heart rate Oxygen saturation Oxygen saturation in Arterial blood by Pulse oximetry Systolic blood pressure Diastolic blood pressure Provider Name and Address Organization Details Last Updated DateTime 4 180.34 cm 42.3 kg/m2 916500. 49 g 82 /min 99 % 99 % 122 mm[Hg] 64 mm[Hg] Dior Scales [facility] 4 14:48:32 Social History Question Answer [...] SNOMED-CT Code Diagnosis ICD10 Code Diagnosis Note [id number] JODEE ZHANG APRN-DISTRIBUTION SYSTEMS SUPERINTENDENT [facility]) [address] [place] [address] 01/06/2024 11:49:43 01/06/2024 12:26:32 Simple laceration of scalp 885378057 S01.01XA [id number] Terri Lynn APRN, [facility] [address] [place] [address] 03/24/2024 14:32:19 03/24/2024 15:39:11 Anxiety 88825587 F41.9 Asthma 178524762 J45.90 9 Obstructiv e sleep apnea syndrome 31568155 G47.33 Benign ess ential hypertension 9622247 I10 History of Graves' disease 2179042281 58795 Z86.39 Impacted c erumen in right ear 0693754910 667648 H61.21 History an d physical examination, annual for health maintenance 96359082 Z00.00 Seasonal a llergic rhinitis 415066000 J30.2 Erectile dysfunction 860 890617 N52.9 Chronic ob structive pulmonary disease 75911484 J44.9 Health Concerns Section Related Observation LastModified by Organization Detai ls LastModified Time None Recorded Concern Status LastModified by Organization Details LastModified Time None Recorded Advance Directives Directive N: Payers Encounter Date Sequence Insurance Name Policy Number Policy Marie Covered Member ID Marie Member ID Guarantor Name 01/06/2024 1 [place] [id number] Hamlet Baker Jossue [id number] Hamlet Baker Jossue 03/24/2024 1 [place] [id number] Hamlet Baker Jossue [id number] Hamlet Marcum Notes Date Note Type [...] asthma, hypertension. Social history: Smoker. JODEE ZHANG APRN-DISTRIBUTION SYSTEMS SUPERINTENDENT [address] [place] [address], [phone], [facility] 01/06/2024 12:25:16 03/24/2024 text/html Hamlet Marcum is [...] He is getting ready to move to [place] with his [employer] and is soon to be in September. [...] wait until he is established with his [employer] insurance once they are and is with his new primary care in [place].Vaccines: He has updated Tdap on 12/01/2020, but defers any other vaccines.lag Hamlet Marcumis a 48 year oldmalepresenting for care. Terri Lynn, CANDIDO, DISTRIBUTION SYSTEMS SUPERINTENDENT [address] [place] [address], [phone], [facility] 03/26/2024 17:20:48
[2024-08-29] MEDS: LACTATED RINGERS 1,000 ML 30 ML IV CONT ×2 (13:30→15:55)
[2024-08-29] MEDS: ACETAMINOPHEN 500 MG TABLET 1000 MG PO (13:30)
[2024-08-29] MEDS: KETOROLAC 15 MG/ML VIAL (*BKC) IV PUSH (13:30)
--- NOTE | 2024-08-29 14:50 | WPDANESEPPF ---
Anes - Initial Pre Proc Eval Procedure: Operation Date: 08/29/24 15:00 Proposed Procedures p Left Knee Arthroscopy, Partial Medial Meniscectomy - Greg Brush MD Date/Time: 08/29/24 14:50 Surgeon: Greg Brush MD Pre Op Diagnosis: left medial meniscus tear Patient Data Age: 48 Gender: M Height: 1.83 m Weight: 137.4 kg Last Vital Signs Temp 36.6 C 08/29/24 13:30 Pulse 72 08/29/24 13:30 Resp 14 08/29/24 13:30 BP 138/84 08/29/24 13:30 Pulse Ox 100 08/29/24 13:30 O2 Del Method Room Air 08/29/24 13:30 Allergies Allergy/AdvReac Type Severity Reaction Status Date / Time doxycycline Allergy Anaphylaxis Verified 08/29/24 13:57 Penicillins Allergy Anaphylaxis Verified 08/29/24 13:57 prednisone Allergy Anaphylaxis Verified 08/29/24 13:57 Home Medications ?Medication ?Instructions ?Recorded ?Confirmed ?Type alprazolam 0.25 mg tablet 0.25 mg PO QID PRN anxiety 07/29/24 08/22/24 History fluticasone furoate 200 1 inh inhalation Q24H 07/29/24 08/22/24 History mcg-vilanterol 25 mcg/dose inhalation powder (Breo Ellipta) losartan 100 mg tablet 100 mg PO QPM 07/29/24 08/22/24 History montelukast 10 mg tablet 10 mg PO QPM 07/29/24 08/22/24 History sildenafil 50 mg tablet 50 mg PO Q24H PRN sexual activity 07/29/24 08/22/24 History venlafaxine 37.5 mg 75 mg PO QPM 07/29/24 08/22/24 History capsule,extended release 24 hr tramadol 50 mg tablet 50 mg PO Q12H PRN pain 08/22/24 08/22/24 History albuterol sulfate 90 mcg/actuation 1 inh inhalation Q4-6H 08/29/24 08/29/24 History aerosol inhaler aspirin 81 mg tablet,delayed 81 mg PO BID 14 days #28 tabs 08/29/24 Rx release budesonide-formoterol HFA 160 1 inh inhalation BID 08/29/24 08/29/24 History mcg-4.5 mcg/actuation aerosol inhaler (Symbicort) hydrocodone 5 mg-acetaminophen 325 1 - 2 tablet PO Q4-6H PRN pain 7 08/29/24 Rx mg tablet days #30 tabs Patient hx anesthesia problems: none Family hx anesthesia problems: none Results Review: All pre-operative results and documents have been reviewed as part of the pre-operative evaluation. [facility] Past Medical History Medical History (Updated 08/29/24 @ 14:51 by Johnny Armstrong DO) HATTIE (obstructive sleep apnea) COPD (chronic obstructive pulmonary disease) Blocked ear 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 Anxiety Asthma Allergies Surgical History Surgical History (Updated 08/10/24 @ 08:47 by Irina Clark [facility]) History of dental surgery History of hernia surgery History of carpal tunnel release of both wrists Family History Family History (Updated 08/10/24 @ 08:45 by Irina Clark CMA) Father Diabetes mellitus Depression Heart disease Hypertension Mother Ovarian cancer Anxiety Social History Social History (Updated 08/10/24 @ 08:42 by Irina Clark [facility]) Smoking status: Current some day smoker Tobacco type: cigarettes Alcohol intake: never Substance use: unknown Substance use type: does not use Do You Feel Safe in your Home?: Yes Lack of Transportation: No Lack of Food: Never True Current Housing: I Have Housing Concerned About Future Housing: No Difficulty Paying Gas/Electric Bills: No Difficulty Paying for Meds: No Currently Unemployed: No Education: Trade/Vocational Certificate Difficulty w/ Childcare or Family Care: No Anes - Eval Final PreProcedure Day of Procedure 08/29/24 14:50 Patient weight: morbidly obese Heart: regular rate and rhythm Lungs: clear to auscultation Airway: Mallampati scale class III Neurological: alert and oriented Last oral intake: >/= 8 hours ASA classification: III Emergent: no Anesthetic plan: proceed Anesthesia type and monitoring: general LMA and standard monitoring Results Review: All pre-operative results and documents have been reviewed as part of the pre-operative evaluation. Informed Consent: The patient's anesthetic plan and its attendant risks and benefits were discussed with the patient/family/POA. Questions were solicited and answers provided to the satisfaction of the patient/family/POA.
--- NOTE | 2024-08-29 15:00 | WPDHPUPDATE1 ---
History and Physical Update Update Date/Time: 08/29/24 15:00 History and Physical has been reviewed, including an updated exam of the patient. There are NO changes in the patient's condition. Risks, benefits, and alternatives have been discussed and questions answered. Patient agrees to proceed with procedure.
[2024-08-29] MEDS: CLINDAMYCIN 900 MG/D5W 50 ML 900 MG/50 ML PIGGYBACK 50 MG IVPB (15:05)
[2024-08-29] MEDS: BUPIVACAINE/EPINEPHRINE 0.5% 50 ML VIAL 30 ML INFILTRATE (15:29)
--- NOTE | 2024-08-29 15:48 | W.PM.PROC2 ---
Procedure Note - Detailed Date of Procedure 08/29/24 Pre-op Diagnosis Left knee medial meniscus tear. Post-op Diagnosis Same Procedure Performed Arthroscopic partial medial meniscectomy, left knee. Surgeon Greg Brush MD Anesthesia General Findings Extensive posterior horn complex tear. The knee was otherwise very healthy, with a mild synovitis. Medial femur chondromalacia grade 1, medial tibia grade 1. Lateral femur chondromalacia grade 0, lateral tibia grade 0. Patellar grade 0, trochlea grade 0. ACL normal. Description of Procedure The patient was identified and the surgical site confirmed and signed in the preoperative holding area. Antibiotics were started per protocol, and the patient was brought to the operative room and transferred to the OR table. A general anesthetic was administered. Supine position with the operative lower extremity position in the leg workman after placement of a well padded tourniquet. The leg support was lowered and the contralateral limb was supported with a soft bolster. The knee was prepped and draped in the usual sterile fashion. A time-out was performed. The portal sites were marked and infiltrated with 0.5% Marcaine 20 mL. The limb was exsanguinated and the tourniquet inflated to 300 mL Hg. Standard inferolateral and inferomedial portals were established. Inflow was obtained with the saline pump. The camera was introduced. Diagnostic inspection of the joint was accomplished. The meniscus was debrided with the arthroscopic shaver and punches until stable. The radiofrequency probe was also used for further d?bridement. The arthroscopic instruments were removed. The tourniquet released and wounds closed with subcutaneous 4-0 Monocryl absorbable suture. Steri strips and a sterile dressing were applied. A light elastic wrap was placed. The patient was extubated and brought to the recovery room in stable condition. Estimated Blood Loss 5 Drains No Complications No immediate complications Condition Stable Disposition PACU [facility] Billing Surgery - Charge Forward: Surgery Billing
[2024-08-29] MEDS: fentaNYL CITRATE INJ (*CRX) 100 MCG/2 ML VIAL 25 MCG IV PUSH ×4 (16:29→16:38)
[2024-08-29] MEDS: oxyCODONE HCL (*CRX) 5 MG TAB IR PO (16:59)
== END 2024-08-29 17:30 | disposition home or self-care (01) ==
PROVIDERS: PCP Internal Medicine; Visit Provider Orthopaedic Surgery
PROC: (CPT 29870; principal; 2024-08-29 15:00)
DX: S83.232A Complex tear of medial meniscus, current injury, left knee, initial encounter (principal); M94.262 Chondromalacia, left knee; G89.29 Other chronic pain; J44.9 Chronic obstructive pulmonary disease, unspecified; F41.9 Anxiety disorder, unspecified; G47.33 Obstructive sleep apnea (adult) (pediatric); F17.210 Nicotine dependence, cigarettes, uncomplicated; X58.XXXA Exposure to other specified factors, initial encounter; E66.01 Morbid (severe) obesity due to excess calories; Z68.41 Body mass index [BMI] 40.0-44.9, adult; Z79.51 Long term (current) use of inhaled steroids; Z79.84 Long term (current) use of oral hypoglycemic drugs; Z79.82 Long term (current) use of aspirin; Z79.891 Long term (current) use of opiate analgesic; Z98.890 Other specified postprocedural states; Z80.41 Family history of malignant neoplasm of ovary; Z82.49 Family history of ischemic heart disease and other diseases of the circulatory system
CPT/HCPCS: 29881; A9270; J1100; J1171; J1885; J2003; J2250; J2405; J2704; J3010; J7120

== ENCOUNTER 2024-09-02 10:36 | Outpatient (RCR) | payer OTHER, SELFPAY ==
--- NOTE | 2024-09-02 11:40 | OPREHPOC ---
Outpatient Therapy Plan of Care This is a Multidisciplinary Plan of Care that may contain components documented by all disciplines (PT, OT, and ST.) PT Problem 1 PT Problem #1 Knowledge Deficit PT Goal 1 Goal / Goal Update 1. independent and compliant with HEP Target Visit 6 PT Problem 2 PT Problem #2 Pain PT Goal 1 Goal / Goal Update 1. patient to report no pain in the L knee in the last week Target Visit 12 PT Problem 3 PT Problem #3 Impaired Range of Motion PT Goal 1 Goal / Goal Update 1. 0-125 degrees active L knee rom Target Visit 12 PT Problem 4 PT Problem #4 Impaired Strength PT Goal 1 Goal / Goal Update 1. 5/5 L hip flex 2. 5/5 L knee strength 3. 5/5 L ankle DF Target Visit 12 PT Problem 5 PT Problem #5 Impaired Functional Mobility PT Goal 1 Goal / Goal Update 1. LEFS to display 20% or less functional deficits 2. patient to ambulate with normal gait mechanics 3. patient to complete 1000ft ambulation without rest during 6 minute walk test 4. patient to ambulate up and down steps with reciprocal mechanics and no hand rail assist 5. patient to climb up and down ladders without pain Target Visit 12
--- NOTE | 2024-09-02 11:40 | PTOPEVAL1 ---
Assessment and note entered by JT File, PT Evaluation Information Assessment Status Evaluation ICD-10 Condition Codes (PT) Pain in left knee M25.562,Encounter for other orthopedic aftercare Z47.89 Subjective Information patient had arthroscopic surgery of the L knee on 08/29/24 for partial medial meniscectomy. the initial pain began back in July of 2024. he cannot recall any injury. he reports since surgery he has been having a lot of pain. he reports it is getting better every day. he reports he would like to get back to stand, walk, ambulate stairs, and climb ladders like he was doing before without issue. he reports he works for body [employer] in [employer]. Reported Pain Level Pain Score 2: Self Report Assessment PT Clinical Summary mr. fernandes is a 48 yo man who presents to skilled PT services for evaluation and treatment of L knee pain s/p L partial meniscectomy. he presents today with deficits in L knee rom, L LE strength, L knee pain, and abnormal gait mechanics. he would like to get back to normal prior level walking, stair ambulation, and ladder climbing confidently without pain. continued skilled PT is indicated to achieve patients goals and return to his stated prior level functional activity performance/ quality of life. Plan of Care Interventions Electrical Stimulation,Gait Training,Hot Pack/Cold Pack,Manual Therapy,Neuro Re-education,Patient/ Caregiver Education,Therapeutic Activities, Therapeutic Exercise PT Services Indicated Yes Treatment Frequency and 3x weekly for 12 visits Duration These treatments will address the objective and functional deficits as defined above. The patient will be advanced safely and appropriately in order for the patient to progress towards his/her prior level of function. Additional exercises will be introduced and as well as a comprehensive home exercise program upon discharge, if needed, ?to ensure carryover of functional gains achieved in the clinic. This treatment plan has been reviewed and agreement upon by the patient.
--- NOTE | 2024-09-12 16:21 | PCPTNOTE ---
Patient called & cancelled scheduled appointment this date.
--- NOTE | 2024-09-19 12:58 | PCPTNOTE ---
Cancelled session. Reports Dr said it's ok to D/C and continue with HEP.
== END 2024-12-01 23:59 | disposition home or self-care (01) ==
LOC: CHSPT 10:36
PROVIDERS: Visit Provider Orthopaedic Surgery
DX: M25.562 Pain in left knee (principal); Z47.89 Encounter for other orthopedic aftercare
CPT/HCPCS: 97016; 97110; 97161; 97530

== ENCOUNTER 2024-10-31 16:26 | Outpatient (CLI) | payer OTHER, SELFPAY ==
--- NOTE | ~2024-10-31 | XR_ITS ---
EXAM: XR ankle RT min 3V DATE: 10/31/2024 16:44 HISTORY: MEDIAL ANKLE PAIN . COMPARISON: None available. FINDINGS: Normal mineralization. No fracture or dislocation. No lytic or blastic lesion. Joint space s are maintained. Mild Achilles and plantar enthesopathy. No erosion or periosteal change. Soft tissu es within normal limits. IMPRESSION: No acute osseous finding in the right ankle. Reviewed, dictated and finalized at location K.
--- OUTSIDE RECORDS SUMMARY | 2024-10-31 16:31 | XMS_ITS | Data Portability ---
Author Organization [facility], [address] [facility] ([place]) Address [address] 4th [place] [address] Care Team Providers Care Corporate Traffic Manager Name Role Phone VIGNESH SCHULER Primary [...] establishes with a new primary care in [place]. 7. Asthma: The patient has no acute [...] on this date of service including both [id number]-[id number] and lpt-edpf-xt-face time excluding any separately reportable services. lag [email or web address] Not available 03/24/2024 16:16:34 Plan of Treatment Reminders Order Date Submit Date Provider Last Modified By Organization Details Last Modified Time Details Appointments None recorded. Lab None recorded. Referral None recorded. Procedures None recorded. Surgeries None recorded. Imaging None recorded. Medication Orders sildenafil 50 mg tablet 2023 [facility] [address] [place], [address], 15:40:42 Symbicort 160 mcg-4.5 mcg/actuati on HFA aerosol inhaler 2023 [facility] [address] [place], [address], 15:40:42 albuterol sulfate HFA 90 mcg/actuati on aerosol inhaler 2023 [facility] [address] [place], [address], 15:40:43 losartan 100 mg tablet 2023 [facility] [address] [place], [address], 15:40:41 montelukast 10 mg tablet 2023 024 [facility], [address], [place], [address], 15:37:19 Patient TargetsNo targets recorded. Patient Instructions Encounter Date Encounter Id Patient Instructions Last Modified By Organization Details Last Modified Time 01/06/2024 [id number] I discussed with the patient that this [...] lightheadedness, dizziness he should return for reevaluation. [email or web address] Not available 01/06/2024 12:25:12 Reason for Referral None Reported. Problems Name Problem SNOMED Code Status Onset Date Resolution Date Notes Provider Name and Address Organization Details Recorded Time Benign essential hypertensio n 6086196 Active 2023 Dior Yordy [facility] 4 15:33:34 Anxiety 43565448 Active 2023 Nathalie Sun [facility] 4 11:33:35 Asthma 536923746 Active 2023 Nathalie Sun [facility] 4 11:33:49 Graves' disease 076088947 Active 2023 Nathalie Sun [facility] 4 11:34:10 Obstructive sleep apnea syndrome 44755368 Active 2023 Nathaliesacha Sun [facility] 4 11:34:31 Impacted cerumen in right ear 8945955125331 103 Active 2023 Terri Lynn, [employer], [facility] [address] , [place], [address] , [facility] 4 15:32:55 Seasonal allergic rhinitis 576532550 Active 2023 Terri Lynn APRN, [facility] [address] [place] [address], [phone], [facility] 4 15:34:46 Erectile dysfunction 021870139 Active 2023 Terri Lynn APRN, [facility] [address] [place] [address], [phone], [facility] 4 15:39:13 Chronic obstructive pulmonary disease 04515326 Active 2023 Bree David [facility] 4 23:36:24 Problem Notes None recorded. Procedures Surgical History Date Name Laterality Status Provider Name and Address Organization Details Recorded Time 4 Wound Care UC completed JODEE ZHANG APRN-[facility] [address] [place] [address], [phone], [facility] 01/06/2024 12:23:50 Removal of tonsils completed Not Available Health Note 03/17/2024 15:23:38 Imaging Results None recorded. Procedure Notes None recorded. Medical Equipment None Reported. Allergies Allergen ID Allergen Name Allergen Category Reaction Reaction Severity Criticality Documentation Date Start Date Code Code System Note Provider Name and Address Organization Details Recorded Time 0356617 prednison e medicatio n dizziness Not available Not available 07/01/20232018 8640 RxNorm React ion: Dizzi ness; Comme nt: Annot ation s: NAT MATUTE, LEO SULTANA 2018 8:28A M Also cause d light heade dness ; ; Not Available [facility] 4 04:41:32 497731 Product containin g penicilli n (product) medicatio n rash Not available Not available 06/29/20232007 23220 8001 SNOMED React ion: Rash; Not Available [facility] 4 23:18:55 955313 doxycycli ne Not available other Not available Not available 06/29/20232018 3640 RxNorm React ion: Unkno wn to Patie nt; Not Available [facility] 4 23:18:56 Medications Name Sig Start Date Stop Date [...] losartan 100 mg tablet Take 1 tablet by mouth once daily 2024 active Not Available Not Available Not Avai [...] Updated DateTime 4 180.34 cm 42.8 kg/m2 864613. 86 g 97.7 [degF] 70 /min 18 /min 97 % 97 % 132 mm[Hg] 82 mm[Hg] Princess España [facility] 4 12:03:15 Date Recorded Body height Body mass index (BMI) Body weight Heart rate Oxygen saturation Oxygen saturation in Arterial blood by Pulse oximetry Systolic blood pressure Diastolic blood pressure Provider Name and Address Organization Details Last Updated DateTime 4 180.34 cm 42.3 kg/m2 379489. 49 g 82 /min 99 % 99 [...] Consumption? Occasional [email or web address] Information not available 03/17/2024 How Many [...] Status? Single [email or web address] Information not available 03/17/2024 Sex: Unknown Functional Status Question Answer Note LastModified by Organizat ion Details LastModified Time Do you use any illicit or recreational drugs? No [email or web address] Information not available 03/17/2024 What is your level of alcohol consumption? None [email or web address] Information not available 03/17/2024 Are you currently employed? 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 Moderate [email or web address] [...] SNOMED-CT Code Diagnosis ICD10 Code Diagnosis Note [id number] JODEE ZHANG APRN-[facility]) [address] [place] [address] 01/06/2024 11:49:43 01/06/2024 12:26:32 Simple laceration of scalp 860714225 S01.01XA [id number] Terri Lynn APRN, [employer] [employer] [facility] [address] [place] [address] 03/24/2024 14:32:19 03/24/2024 15:39:11 Anxiety 57433979 F41.9 Asthma 331397389 J45.90 9 Obstructiv e sleep apnea syndrome 09023555 G47.33 Benign ess ential hypertension 9956492 I10 History of Graves' disease 5409895290 20546 Z86.39 Impacted c erumen in right ear 4468434831 840969 H61.21 History an d physical examination, annual for health maintenance 82360951 Z00.00 Seasonal a llergic rhinitis 792486304 J30.2 Erectile dysfunction 860 762992 N52.9 Chronic ob structive pulmonary disease 35568712 J44.9 Health Concerns Section Related Observation LastModified by Organization Detai ls LastModified Time None Recorded Concern Status LastModified by Organization Details LastModified Time None Recorded Advance Directives Directive N: Payers Insurance Date Sequence Insurance Name Policy Number Policy Marie Covered Member ID Marie Member ID Guarantor Name 01/06/2024 [facility] Rita Mcnulty Olivia Jossue 03/27/2024 1 [place] [id number] Hamlet Marcum [id number] Hamlet Marcum Notes Date Note Type [...] asthma, hypertension. Social history: Smoker. JODEE ZHANG APRN-[facility] [address] [place] [address], [phone], [facility] 01/06/2024 12:25:16 03/24/2024 text/html Hamlet Marcum [...] He is getting ready to move to [place] with his [employer] and is soon to be in September. [...] wait until he is established with his [employer] insurance once they are and is with his new primary care in [place].Vaccines: He has updated Tdap on 12/01/2020, but defers any other vaccines.lag Hamlet Marcumis a 48 year oldmalepresenting for care. Terri Lynn APRN, [facility] [address] [place] [address], [phone], [facility] 03/26/2024 17:20:48
== END 2024-10-31 16:27 | disposition home or self-care (01) ==
LOC: CHSIMG 16:28
PROVIDERS: PCP Internal Medicine; Visit Provider Internal Medicine
DX: M25.571 Pain in right ankle and joints of right foot (principal)
CPT/HCPCS: 73610

== ENCOUNTER 2025-03-18 22:51 | Emergency (ER) | payer SELFPAY ==
--- NOTE | ~2025-03-18 | XR_ITS ---
Examination: XR chest 1V portable Clinical History: CHEST PAIN X 2 HRS. Comparison: 04/15/2024 Technique: Portable AP Findings: Heart size normal. Lungs clear. No acute bony abnormality. IMPRESSION: 1. No acute cardiopulmonary findings given portable technique. Reviewed, dictated and finalized at location R.
--- NOTE | 2025-03-18 22:51 | ECG_ITS ---
Test Date: 2025-03-18 22:48:17 Measurements Intervals [place] Rate: 71 P: -7 NV: 126 QRS: 16 QRSD: 114 T: 21 QT: 392 QTc: 428 Interpretive Statements SINUS RHYTHM INCOMPLETE RIGHT BUNDLE BRANCH BLOCK MINIMAL Q WAVES- HIGH LATERAL LEADS BORDERLINE T WAVE ABNORMALITY- INFERIOR LEADS BASELINE ARTIFACT- III BORDERLINE ECG Compared to ECG 04/15/2024 17:41:09 HEART RATE HAS INCREASED Electronically Signed On 03-20-2025 06:08:24 CDT by Damian Barnes D.O.
[2025-03-18 22:52] VITALS: BP 147/80; PULSE 69; RESP 15; TEMP 36.6; O2SAT 98
--- NOTE | 2025-03-18 22:52 | ED.GENADULT ---
HPI - General Adult General Chief complaint: Chest Pain Stated complaint: chest pain Time Seen by Provider: 03/18/25 22:51 Source: patient Mode of arrival: ambulatory Limitations: no limitations History of Present Illness HPI narrative: The patient is a 49-year-old male with history of hypertension, anxiety, asthma, obstructive sleep apnea, who smokes cigarettes but no other drug or alcohol use. Tonight, at 9:00 p.m., the patient developed sharp left substernal chest discomfort, described as pins and needles, lasting approximately 10 seconds at a time, recurring every 5-10 minutes. Since it did not resolve, he presents for further evaluation. He has no other associated symptoms. He is mostly pain-free. There is no dull chest discomfort, only the sharp chest pain. There is no radiation of the pain elsewhere. There are no other associated symptoms such as nausea or vomiting or dizziness or shortness of breath. No abdominal discomfort. No other complaints. No previous similar history. Related Data Home Medications ?Medication ?Instructions ?Recorded ?Confirmed ?Last Taken ?Type alprazolam 0.25 mg tablet 0.25 mg PO QID PRN anxiety 07/29/24 10/19/24 Unknown History fluticasone furoate 200 1 inh inhalation Q24H 07/29/24 10/19/24 Unknown History mcg-vilanterol 25 mcg/dose inhalation powder (Breo Ellipta) losartan 100 mg tablet 100 mg PO QPM 07/29/24 10/19/24 Unknown History montelukast 10 mg tablet 10 mg PO QPM 07/29/24 10/19/24 Unknown History sildenafil 50 mg tablet 50 mg PO Q24H PRN sexual activity 07/29/24 10/19/24 Unknown History venlafaxine 37.5 mg 75 mg PO QPM 07/29/24 10/19/24 Unknown History capsule,extended release 24 hr tramadol 50 mg tablet 50 mg PO Q12H PRN pain 08/22/24 10/19/24 Unknown History Held on 08/29/24. Instructions: Resume on 09/12/24. Hold while taking Hydrocodone. albuterol sulfate 90 mcg/actuation 1 inh inhalation Q4-6H 08/29/24 10/19/24 08/29/24 History aerosol inhaler budesonide-formoterol HFA 160 1 inh inhalation BID 0310/19/24 08/29/24 History mcg-4.5 mcg/actuation aerosol inhaler (Symbicort) Allergies Allergy/AdvReac Type Severity Reaction Status Date / Time doxycycline Allergy Anaphylaxis Verified 03/18/25 23:03 Penicillins Allergy Anaphylaxis Verified 03/18/25 23:03 prednisone Allergy Anaphylaxis Verified 03/18/25 23:03 Review of Systems Review of Systems: All systems reviewed & are unremarkable except as noted in HPI and below Constitutional: Constitutional: Denies chills, Denies excessive sweating, Denies fatigue, Denies fever(s), Denies headache(s) and Denies weakness Eyes: Eyes: Denies change in vision and Denies photophobia ENT: Denies dysphagia, Denies dizziness, Denies headache(s), Denies lip swelling, Denies nasal congestion, Denies sore throat and Denies tongue swelling Cardiovascular: Cardiovascular: Reports chest pain, Denies syncope, Denies rapid heart rate and Denies dyspnea Respiratory: Respiratory: Denies cough, Denies dyspnea and Denies wheezing Gastrointestinal: Gastrointestinal: Denies abdominal pain, Denies constipation, Denies dysphagia, Denies diarrhea, Denies nausea and Denies vomiting Genitourinary: Genitourinary: Denies hematuria, Denies dysuria, Denies urinary frequency and Denies urinary urgency Musculoskeletal: Musculoskeletal: Denies back pain, Denies myalgias, Denies arthralgias, Denies joint swelling and Denies numbness Integumentary/Breasts: Skin/Breast: Denies pruritus, Denies erythema and Denies rash Neurologic: Denies confusion, Denies dizziness, Denies syncope, Denies headache(s), Denies focal weakness, Denies numbness and Denies weakness Psychiatric: Psychiatric: Denies anxiety and Denies confusion Endocrine: Endocrine: Denies excessive sweating and Denies fatigue Hematologic/Lymphatic: Hematologic/Lymphatic: Denies easy bleeding and Denies easy bruising Allergic/Immunologic: Allergic/Immunologic: Denies lip swelling, Denies tongue swelling and Denies wheezing PMFSH Past Medical History Medical History HATTIE (obstructive sleep apnea) COPD (chronic obstructive pulmonary disease) Blocked ear 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 Anxiety Asthma Allergies Surgical History Surgical History Status post arthroscopic partial medial meniscectomy of left knee (~08/29/24) History of dental surgery History of hernia surgery History of carpal tunnel release of both wrists Family History Family History Father Diabetes mellitus Depression Heart disease Hypertension Mother Ovarian cancer Anxiety Social History Social History Years smoked: 29 Smoking status: Current some day smoker Tobacco type: cigarettes Alcohol intake: never Substance use: unknown Substance use type: does not use Do You Feel Safe in your Home?: Yes Lack of Transportation: No Lack of Food: Never True Current Housing: I Have Housing Concerned About Future Housing: No Difficulty Paying Gas/Electric Bills: No Difficulty Paying for Meds: No Currently Unemployed: No Education: Trade/Vocational Certificate Difficulty w/ Childcare or Family Care: No Living arrangements: with family Spiritual care concerns: No Exam Const: General: healthy appearing, no acute distress, alert and well nourished Nutritional Appearance: well nourished and obese Orientation/consciousness: patient oriented x3 Limitations: no limitations HENMT: Head: normal to inspection Ears: external ears normal Face/Nose/Sinus: normal facial exam Face and sinus: normal facial exam Mouth: Yes moist mucous membranes Throat: posterior oropharynx normal Eyes: Conjunctivae: conjunctivae normal Pupils: Equal, round and reactive pupils present EOM: EOMs intact bilaterally Neck: Neck: normal visual inspection and no meningeal signs Chest: Chest palpation & inspection: normal inspection of the chest and no tenderness Resp: Effort & Inspection: normal respiratory effort and not labored Auscultation: clear to auscultation bilaterally, no crackles, no rhonchi and no wheezes Cardio: Rate: regular rate Rhythm: regular rhythm Heart sounds: no murmurs GI: Inspection: non-distended GI Palp: Yes Soft to palpation, No Tenderness to palpation present (GI), No Guarding due to palpation present (GI) and No Rebound tenderness present : General: Yes no CVA tenderness Back/Spine/Pelvis: Back: no CVA tenderness Cervical Spine: No Cervical spine tenderness Thoracic/Lumbar Spine: No thoracic spinal tenderness Skin: General skin exam: normal color Rashes: no rashes Wounds: no wounds Neuro: General: patient oriented x3, moves all extremities, no meningeal signs, no focal motor deficits and CN's II-XI intact bilaterally Cranial nerves: Yes Equal, round and reactive pupils present Speech: normal speech Motor exam (neuro): 5/5 motor strength present throughout Sensory Exam: normal sensation Extrem: General: normal to inspection and no clubbing, cyanosis or edema Psych: Mental Status: mental status grossly normal Affect: normal affect Course Course Emergency Course: 49-year-old male with the interpreted sharp episodes of chest pain, lasting 10 seconds and resolving, recurring, since 9:00 p.m. tonight, with risk factors of cigarette use, hypertension, and obesity. Initial EKG is unremarkable for any acute findings. Workup in progress. Aspirin 324 mg p.o. given. Doubt significant cardiac pathology. 01:00 AM: THE BLOOD WORK IS UNREMARKABLE. INITIAL TROPONIN IS NORMAL AND SO WAS THE D-DIMER AND ELECTROLYTES. BNP IS NORMAL WELL. URINE TOXICOLOGY IS NEGATIVE. The patient's chest pain is noncardiac. Had previously ordered a troponin in 1 hour, 2 hours after the initial troponin but he would like to go home. I feel that is reasonable. Will discharge home. He has not had chest pain for approximately 20-30 minutes. All questions answered. Vital Signs Vital signs: Vital Signs Temperature 36.6 C 03/18/25 22:52 Pulse Rate 69 03/18/25 22:52 Respiratory Rate 15 03/18/25 22:52 Blood Pressure 147/80 H 03/18/25 22:52 Pulse Oximetry 98 03/18/25 22:52 Oxygen Delivery Room Air 03/18/25 22:52 Temperature 36.6 C 03/19/25 01:07 Pulse Rate 74 03/19/25 01:07 Respiratory Rate 18 03/19/25 01:07 Blood Pressure 140/85 03/19/25 01:07 Pulse Oximetry 97 03/19/25 01:07 Oxygen Delivery Room Air 03/19/25 01:07 Medical Decision Making Vital Signs Vital Signs: Vital Signs Temperature 36.6 C 03/18/25 22:52 Pulse Rate 69 03/18/25 22:52 Respiratory Rate 15 03/18/25 22:52 Blood Pressure 147/80 H 03/18/25 22:52 Pulse Oximetry 98 03/18/25 22:52 Oxygen Delivery Room Air 03/18/25 22:52 Temperature 36.6 C 03/19/25 01:07 Pulse Rate 74 03/19/25 01:07 Respiratory Rate 18 03/19/25 01:07 Blood Pressure 140/85 03/19/25 01:07 Pulse Oximetry 97 03/19/25 01:07 Oxygen Delivery Room Air 03/19/25 01:07 Lab Data 03/18/25 23:32 03/18/25 23:32 Labs: Lab Results 03/18/25 03/18/25 Range/Units 23:23 23:32 WBC 12.1 H (4.8-10.8) K/mm3 RBC 5.02 (4.70-6.10) M/mm3 Hgb 14.1 (14.0-18.0) g/dL Hct 42.7 (40.0-54.0) % MCV 85.1 (78.0-102.0) fL MCH 28.1 (27.0-31.0) pg MCHC 33.0 (32-36) g/dL RDW 13.7 (11.6-14.4) % Plt Count 182 (150-420) K/mm3 MPV 9.3 (8.7-11.0) fl Immature Gran % (Auto) 0.5 H (0.0-0.0) % Neut % (Auto) 66.4 (50.0-70.0) % Lymph % (Auto) 21.3 (18.0-42.0) % Imperial % (Auto) 6.2 (2.0-11.0) % Eos % (Auto) 4.6 (1.0-6.0) % Baso % (Auto) 1.0 (0.0-1.0) % Lymph # (Auto) 2.58 (1.10-4.50) K/mm3 Imperial # (Auto) 0.75 (0.10-0.90) K/mm3 Eos # (Auto) 0.56 H (0.02-0.50) K/mm3 Baso # (Auto) 0.12 H (0.00-0.10) K/mm3 Abs Immat Gran (auto) 0.06 H (0.00-0.00) K/mm3 Absolute Neuts (auto) 8.07 H (1.70-7.20) K/mm3 Absolute Nucleated RBC 0.00 (0.00-0.00) K/mm3 Nucleated RBC % 0.0 (0-0.0) % D-Dimer 0.19 (0.19-0.50) mg/L Sodium 143 (137-145) mmol/L Potassium 4.0 (3.4-5.0) mmol/L Chloride 108 H (98-107) mmol/L Carbon Dioxide 27 (22-30) mmol/L Anion Gap 8 (4-12) mmol/L BUN 15 (9-20) mg/dL Creatinine 1.05 (0.7-1.3) mg/dL Estim Creat Clear Calc 111 ml/min Estimated GFR > 60 (59 - ) Glucose 106 (65-110) mg/dL Calculated Osmolality 296 H (285-295) mOsm/kg Calcium 9.8 (8.4-10.2) mg/dL Total Bilirubin 0.4 (0.2-1.3) mg/dL AST 28 (17-59) U/L ALT 35 (6-50) U/L Alkaline Phosphatase 68 (38-126) U/L Troponin I < 0.012 (0.000-0.034) ng/mL NT-Pro-B Natriuret Pep < 20 (19.9-100) pg/mL Total Protein 7.3 (6.3-8.2) g/dL Albumin 4.2 (3.5-5.1) g/dL TSH (Reflex) 3.010 (0.465-4.68) uIU/mL Urine Opiates Screen Negative (Negative) Urine Methadone Screen Negative (Negative) Ur Barbiturates Screen Negative (Negative) Ur Phencyclidine Scrn Negative (Negative) Ur Amphetamine Screen Negative (Negative) U Benzodiazepines Scrn Negative (Negative) Urine Cocaine Screen Negative (Negative) U Cannabinoids Screen Negative (Negative) Imaging Data My impression: Chest x-ray: No acute active disease. Interpretation by ER physician. Border of the lung delacruz are not in the chest x-ray view. ECG Data EKG #1: Attestation: I personally reviewed and interpreted this ECG as follows: ECG completion date: 03/18/25 ECG completion time: 22:48 Prior ECG tracings: available for review Interpretation: No acute ST elevation or depression. No ischemic changes. Sinus rhythm at 71 beats per minute. Incomplete right bundle branch block. Normal intervals. Normal axis. Compared to the previous EKG from 04/15/2024, the previously noted sinus bradycardia has resolved, otherwise no significant change. EKG Interpretation: normal rate, sinus rhythm, no ectopy, no ST changes, normal QT and no acute changes Discharge Plan Discharge Clinical Impression: Chest pain with low risk for cardiac etiology Patient Disposition: Home Condition: Stable Instructions: Chest Pain (ED) Additional Instructions: Your workup did not reveal any major abnormalities. This included a chest x-ray, EKG, and blood work. Your chest pain is most likely not related to heart. We also investigated the possibility of a blood clot in the lungs and pneumonia, and neither is present. Try to rest and take it easy today. Follow-up with primary care provider the next 1-2 weeks for a re-evaluation Return if worse Patient Language: Arabic Prescriptions: No Action venlafaxine 37.5 mg capsule,extended release 24hr 75 mg PO QPM fluticasone furoate-vilanterol [Breo Ellipta] 200-25 mcg/dose blister with device 1 inh inhalation Q24H losartan 100 mg tablet 100 mg PO QPM montelukast 10 mg tablet 10 mg PO QPM alprazolam 0.25 mg tablet 0.25 mg PO QID PRN (Reason: anxiety) sildenafil 50 mg tablet 50 mg PO Q24H PRN (Reason: sexual activity) tramadol 50 mg tablet 50 mg PO Q12H PRN (Reason: pain) albuterol sulfate 90 mcg/actuation HFA aerosol inhaler 1 inh INHALATION Q4-6H budesonide-formoterol [Symbicort] 160-4.5 mcg/actuation HFA aerosol inhaler 1 inh INHALATION BID Follow-up/Referrals: Katelin Paz MD [Primary Care Provider, Internal Medicine] - 1 Week Referral Note: Chest pain, noncardiac by workup which included troponin D-dimer EKG and chest x-ray. Clinical Impression: Chest pain with low risk for cardiac etiology Time of Disposition: 01:03
--- OUTSIDE RECORDS SUMMARY | 2025-03-18 22:53 | XMS_ITS | Patient Health Record ---
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 Name Role Phone Federico Woodward Unavailable [phone] Reason For Referral No Information Social History Sex Assigned At : Social History Observation Description Sex Assigned At Male Encounters Encounter Location Date Provider Diagnosis [facility] [employer] [address] [address] 11/10/2024 Federico Woodward [facility] [address] [place] [address] [facility] [address] [facility] [address] [place] [address] 02/10/2025 Federico Woodward Plan Of Treatment No Information Insurance Providers Payer Name Payer Address Payer Phone Subscriber Number Group Number Insured Name Patient Relationship to Insured Coverage Start Date Coverage End Date [facility] [address] [address] [place] [address] [id number] Tone Marcum Self - patient is the insured
--- OUTSIDE RECORDS SUMMARY | 2025-03-18 22:53 | XMS_ITS | Clinical Summary ---
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 Gender Identity Not on file Sexual Orientation [...] 12:49 PM CDT Height 180.3 cm (5' 11) 03/26/2021 12:49 PM CDT Body Mass Index 50.21 03/26/2021 12:49 PM CDT Plan of Treatment Health Maintenance Due Date Last Done Comments Colorectal Cancer Screening Colonoscopy (10 Years) 1976 Annual Physical 12/20/1979 Hepatitis C 1994 DTaP, Tdap and Td Vaccines ( 1 - Tdap) 12/20/1995 Hepatitis B Vaccines (1 of 3 - 19+ 3-dose series) 12/20/1995 Pneumococcal Vaccine: Pediat rics (0 to 5 Years) and At-Risk Patients (6 to 49 Years) (1 of 2 - PCV) 12/20/1995 COVID-19 Vaccine (2023-2 5 season) 2025 Influenza Adult (#1) 2025 Meningococcal B Vaccine Aged Out No l onger eligible based on patient's age to complete this topic Meningococcal Vaccine Aged Out No [place] eligible based on patient's age to complete this topic RSV Immunizations Under 20 Months Aged Out No longer eligible based on patient's age to complete this topic [place] [address] [place] [id number] Care Teams Tax Technician Relationship Specialty Start Date End Date Desi Dang MD [address], [place] [id number] PCP - General FAMILY PRACTICE 06/15/20
[2025-03-18 22:55] VITALS: PULSE 70; O2SAT 95
[2025-03-18 23:01] VITALS: BP 133/79; PULSE 70; RESP 16; O2SAT 97
[2025-03-18] MEDS: ASPIRIN 81 MG CHEWABLE TABLET 324 MG PO (23:01)
[2025-03-18 23:41] LABS: Hematocrit 42.7 % (40.0-54.0); Hemoglobin 14.1 g/dL (14.0-18.0); Immature Granulocyte Percent A 0.5 % (0.0-0.0); Lymphocytes Absolute Auto 2.58 K/mm3 (1.10-4.50); Mean Corpuscular HGB Conc 33.0 g/dL (32-36); Mean Corpuscular Hemoglobin 28.1 pg (27.0-31.0); Mean Corpuscular Volume 85.1 fL (78.0-102.0); Nucleated Red Blood Cells Absolute Auto 0.00 K/mm3 (0.00-0.00); Nucleated Red Blood Cells Perc 0.0 % (0-0.0); Platelet Count Result 182 K/mm3 (150-420); Red Blood Count 5.02 M/mm3 (4.70-6.10); White Blood Count 12.1 K/mm3 (4.8-10.8)
[2025-03-18 23:47] VITALS: BP 132/73; PULSE 67; RESP 12; O2SAT 96
[2025-03-18 23:51] LABS: Alanine Aminotransferase 35 U/L (6-50); Albumin Level 4.2 g/dL (3.5-5.1); Alkaline Phosphatase 68 U/L (38-126); Anion Gap 8 mmol/L (4-12); Aspartate Amino Transferase 28 U/L (17-59); Bilirubin,Total 0.4 mg/dL (0.2-1.3); Blood Urea Nitrogen 15 mg/dL (9-20); Calcium 9.8 mg/dL (8.4-10.2); Carbon Dioxide 27 mmol/L (22-30); Chloride 108 mmol/L (98-107); Estimated CRCL calculation 111 ml/min; Estimated Glomerular Filt Rate > 60; Glucose 106 mg/dL (65-110); Osmolality Calculated 296 mOsm/kg (285-295); Potassium 4.0 mmol/L (3.4-5.0); Sodium 143 mmol/L (137-145); Total Protein 7.3 g/dL (6.3-8.2)
[2025-03-19 00:01] VITALS: BP 134/68; PULSE 67; RESP 18; O2SAT 96
[2025-03-19 00:02] LABS: Cannabinoid Screen Urine Negative (Negative)
[2025-03-19 00:04] LABS: Troponin I < 0.012 ng/mL (0.000-0.034)
[2025-03-19 00:06] LABS: NT Pro B Type Natriuretic Pept < 20 pg/mL (19.9-100)
[2025-03-19 00:24] LABS: Thyroid Stimulating Hormone Reflex 3.010 uIU/mL (0.465-4.68)
[2025-03-19 00:31] VITALS: BP 152/98; PULSE 72; RESP 17; O2SAT 96
--- NOTE | 2025-03-19 00:38 | PC.NURSE ---
Pt not wanting to stay for another 2 hrs to have lab redrawn. Explained to pt about 2nd trop draw and reaoning for it. Pt stated he wanted to speak w/ ER as to why he was having this pain if all tests right now are negative. Call placed to ERP to talk w/ pt.
--- NOTE | 2025-03-19 01:02 | PC.NURSE ---
Dr Marsh in to speak w/ pt. Pt will be d/c home since he has no c/p and no 2nd draw needed at this time. VSS. D/C instructions given to f/u w/ PCP.
[2025-03-19 01:07] VITALS: BP 140/85; PULSE 74; RESP 18; TEMP 36.6; O2SAT 97
== END 2025-03-19 01:08 | disposition home or self-care (01) ==
PROVIDERS: Emergency Provider Emergency Medicine; PCP Internal Medicine
DX: R07.9 Chest pain, unspecified (principal); I10 Essential (primary) hypertension; F17.210 Nicotine dependence, cigarettes, uncomplicated
CPT/HCPCS: 36415; 71045; 80053; 80307; 83880; 84443; 84484; 85025; 85380; 93005; 99284; A9270